=== PATIENT | female | born 1995 | race Two or more races ===

== ENCOUNTER 2018-11-28 21:22 | Inpatient (IN) | payer MEDICAID ==
[2018-11-28] MEDS: Naloxone 0.4 mg/ml Inj (Adult) IVP ONE ×4 (21:35→21:54)
[2018-11-28] MEDS ORDERED: Naloxone 0.4 mg/ml Inj (Adult) ONE ×3 (21:36→21:56)
[2018-11-28] MEDS ORDERED: Sodium Chloride 0.9% 1,000 ML IV ONE ×2 (21:40→22:40)
[2018-11-28 21:43] LABS: BASO % 0.4 % (0.0-2.0); EOS # 0.2 K/uL (0.0-0.7); EOS % 1.6 % (0.0-4.0); HEMOGLOBIN 13.8 g/dL (11.0-16.0); LYMPH % 26.7 % (20.0-40.0); MEAN CORPUSCULAR HEMOGLOBIN 28.4 pg (27.0-31.0); MEAN CORPUSCULAR HGB CONC 33.5 g/dL (33.0-37.0); MEAN PLATELET VOLUME 8.5 fL (7.2-11.7); MONO # 0.7 K/uL (0.0-0.8); MONO % 6.6 % (0.0-10.0); NEUT # 7.3 K/uL (1.8-7.0); NEUT % 64.7 % (50.0-75.0); NRBC % 0.1 % (0.0-2.0); RBC 4.85 Mil/uL (3.80-5.20); RED CELL DISTRIBUTION WIDTH 13.8 % (11.5-14.5); WHITE BLOOD COUNT 11.2 K/uL (4.8-10.8)
[2018-11-28 21:46] LABS: SQUAMOUS EPITHIAL 1 /hpf (0-5); URINE BILIRUBIN NEGATIVE (NEGATIVE); URINE BLOOD NEGATIVE (NEGATIVE); URINE CLARITY Clear (Clear); URINE COLOR Colorless (YELLOW); URINE GLUCOSE (UA) NORMAL (Normal); URINE LEUKOCYTE ESTERASE NEG Leu/uL (Negative); URINE PROTEIN NEGATIVE (NEGATIVE); URINE UROBILINOGEN NORMAL mg/dL (0.2-1.0)
[2018-11-28] MEDS ORDERED: Naloxone 0.4 mg/ml Inj (Adult) IVP ONE ×2 (21:49)
[2018-11-28 21:50] LABS: HCG,QUALITATIVE URINE NEGATIVE (NEGATIVE)
[2018-11-28 22:02] LABS: BENZODIAZEPINES, UR NEGATIVE (NEGATIVE); OPIATES, UR NEGATIVE (NEGATIVE); PHENCYCLIDINE, UR NEGATIVE (NEGATIVE)
[2018-11-28 22:03] LABS: BARBITURATES, UR POSITIVE (NEGATIVE)
[2018-11-28 22:09] LABS: ALB/GLOB RATIO 1.5 (1.0-2.1); ALBUMIN 4.6 g/dL (3.5-5.0); ALT/SGPT 10 U/L (9-52); AST/SGOT 35 U/L (14-36); BLOOD UREA NITROGEN 13 mg/dL (7-17); CALCIUM 9.6 mg/dl (8.6-10.4); GFR NON-AFRICAN AMERICAN > 60
[2018-11-28 22:10] LABS: ACETAMINOPHEN < 10.0 ug/mL (10.0-30.0); SALICYLATE < 1.0 mg/dL 1
--- NOTE | 2018-11-28 22:11 | C.PDOC ---
History Of Present Illness 23 year old female is brought to the ED by EMS accompanied by family after patient was found unresponsive prior to arrival. As per family, patient and family had a normal day today. Patient was not acting any different than her usual aside from complaining of back pain since this morning. Family states she ate lunch with her family and appeared fine. Earlier tonight, patient went into her room. When patient did not come out of her room for a while, parents went to check on her and found she was lying on her bed and they were unable to wake her. EMS was called shortly after. Patient arrived to the ED with vital signs within normal limits and O2 saturation of 97% on room air. Upon ED arrival, patient is responsive to painful stimuli. She was given Narcan, without response. Patient's mother states that she (mother) takes Baclofen, which was in the house but denies the bottle moved from its usual position or any evidence of pills. Additional information limited secondary to patient's clinical condition. Time Seen by Provider: 11/28/18 21:24 Chief Complaint (Nursing): Altered Mental Status History Per: EMS, Family History/Exam Limitations: Clinical Condition Onset Of Symptoms: Cannot Confirm Onset Current Symptoms Are (Timing): Still Present Usual Baseline: Alert Oriented Additional History Per: Family Past Medical History Reviewed: Historical Data, Nursing Documentation, Vital Signs Vital Signs: Last Vital Signs Temp 96.2 F L 11/28/18 21:33 Pulse 57 L 11/28/18 21:23 Resp 20 11/28/18 21:23 BP 96/53 L 11/28/18 21:23 Pulse Ox 99 11/28/18 21:23 - Medical History PMH: No Chronic Diseases Surgical History: No Surg Hx Family History: States: Unknown Family Hx - Social History Hx Alcohol Use: No Hx Substance Use: No - Immunization History Hx Tetanus Toxoid Vaccination: No Hx Influenza Vaccination: No Hx Pneumococcal Vaccination: No Review Of Systems Review Of Systems: ROS cannot be obtained secondary to pt's inabilty to answer questions. Physical Exam - Physical Exam Appears: Non-toxic, In Acute Distress Skin: Normal Color, Warm, Dry, No Other (signs of trauma ) Head: Atraumatic, Normacephalic Eye(s): bilateral: Other (pupils pinpoint ) Oral Mucosa: Moist Tongue: No Bite, No Laceration Throat: Drooling (slight) Neck: Supple Chest: Symmetrical, No Deformity, No Tenderness Cardiovascular: Rhythm Regular, No Murmur Respiratory: Normal Breath Sounds, No Rales, No Rhonchi, No Wheezing Gastrointestinal/Abdominal: Soft, No Tenderness, No Distention, No Guarding, No Rebound Extremity: Capillary Refill (less than 2 seconds), Other (wetness noted to groin area, indicating possible urinary incontinence ) Neurological/Psych: Other (responsive to painful stimuli ) ED Course And Treatment - Laboratory Results Result Diagrams: 11/28/18 21:35 11/28/18 21:35 Lab Results: Urine Color Colorless (YELLOW) 11/28/18 21:35 Urine Clarity Clear (Clear) 11/28/18 21:35 Urine pH 6.0 (5.0-8.0) 11/28/18 21:35 Ur Specific [place] 1.004 (1.003-1.030) 11/28/18 21:35 Urine Protein Negative mg/dL (NEGATIVE) 11/28/18 21:35 Urine Glucose (UA) Normal mg/dL (Normal) 11/28/18 21:35 Urine Ketones Negative mg/dL (NEGATIVE) 11/28/18 21:35 Urine Blood Negative (NEGATIVE) 11/28/18 21:35 Urine Nitrate Negative (NEGATIVE) 11/28/18 21:35 Urine Bilirubin Negative (NEGATIVE) 11/28/18 21:35 Urine Urobilinogen Normal mg/dL (0.2-1.0) 11/28/18 21:35 Ur Leukocyte Esterase Neg Janis/uL (Negative) 11/28/18 21:35 Urine WBC (Auto) < 1 /hpf (0-5) 11/28/18 21:35 Ur Squamous Epith Cells 1 /hpf (0-5) 11/28/18 21:35 Urine HCG, Qual Negative (NEGATIVE) 11/28/18 21:35 Urine HCG, Qual Negative (NEGATIVE) 11/28/18 21:35 O2 Sat by Pulse Oximetry: 99 Medical Decision Making Medical Decision Making: Progress: Bloodwork, urinalysis, CXR, EKG, CT Head ordered and reviewed. Narcan IVP and IV Fluids given. UDS positive for marijuana and barbiturates. Case discussed with Dr. Zarate (ICU wood barrel reconditioner), who has accepted the patient. Disposition Discussed With : Nayan A Elliot - Disposition Disposition: HOSPITALIZED Disposition Time: 22:40 Condition: GUARDED Forms: [facility] (Polish) - Clinical Impression Clinical Impression: Overdose of barbiturate - Scribe Statement The provider has reviewed the documentation as recorded by the Scribe (Siena Cheung) Provider Attestation: All medical record entries made by the Scribe were at my direction and personally dictated by me. I have reviewed the chart and agree that the record accurately reflects my personal performance of the history, physical exam, medical decision making, and the department course for this patient. I have also personally directed, reviewed, and agree with the discharge instructions and disposition. Decision To Admit - Pt Status Changed To: Hospital Disposition Of: Inpatient - Admit Certification Admit to Inpatient:: After my assessment, the patient will require hospitalization for at least two midnights. This is because of the severity of symptoms shown, intensity of services needed, and/or the medical risk in this patient being treated as an outpatient. - InPatient: Physician Admission Certification:: overdose - . Bed Request Type: ICU Admitting Physician: Rachid Carpenter Patient Diagnosis: Overdose of barbiturate
[2018-11-28 22:28] LABS: ARTERIAL BLOOD GAS HCO3 19.7 mmol/L (21-28); ARTERIAL BLOOD GAS HEMOGLOBIN 12.1 g/dL (11.7-17.4); ARTERIAL BLOOD GAS O2 SAT 99.6 % (95-98); ARTERIAL BLOOD GAS PCO2 35 mm/Hg (35-45); ARTERIAL BLOOD GAS PH 7.33 (7.35-7.45); ARTERIAL BLOOD GAS PO2 363 mm/Hg (80-100); ARTERIAL BLOOD GAS TCO2 19.6 mmol/L (22-28)
[2018-11-28 22:47] LABS: VENOUS BLOOD GAS BASE EXCESS -4.9 mmol/L (0.0-2.0); VENOUS BLOOD GAS PCO2 52 mmHg (40-60); VENOUS BLOOD GAS PO2 52 mm/Hg (30-55); VENOUS BLOOD PH 7.25 (7.32-7.43)
--- NOTE | 2018-11-28 23:02 | CP.PCM.CON ---
History of Present Illness - History of Present Illness History of Present Illness: CCM 23 yo female with hx migraines was c/o back pain today per om who was pt OK then 20 min later poorly responsive. Pt BIBEMS and received multiple doses on narcan b/o unresponisve and constricted pupils. No response to narcan. given 1 liter IV fluid in ED. Pt not giving hx. no sick contacts or recent travel. ([place] in March) ffamily denied hx fever /v /d /sob /cough /chest pain. No hx depression or suicide attempts. ROS- as noted All- NKDAsocial- no tob/ etoh/ drugs per family Meds- fioricet/ NSAID FH- unknown PE- T-96.2 P- 60 R-12 BP-122/60 Pupils sl. constricted, sluggish Neck- no jvdlungs- bialt bs Hert-rr aBd- benign Ext- no edema Neuro-moves all ext to pain, Opens eyes to sternal rub and moans Labs, EKG, [id number] U-tox-+noel, +THC CT brain- neg CXR-neg A&P Barbituate OD Encephalopathy Admit to ICU IV hydration neuro checks check lactate maintain optimal lytes repeat labs /ABG suction prn DVT prophylaxis Neurology eval & EEG if no improvement in MS Past Patient History - Past Social History Smoking Status: Unknown If Ever Smoked - PSYCHIATRIC Hx Substance Use: No - SURGICAL HISTORY Hx Surgeries: No Meds Allergies/Adverse Reactions: Allergies Allergy/AdvReac Type Severity Reaction Status Date / Time No Known Allergies Allergy Verified 11/28/18 21:27 - Medications Medications: Current Medications Sodium Chloride (Sodium Chloride 0.9%) 1,000 mls @ 1,000 mls/hr IV .Q1H ONE Stop: 11/28/18 23:39 Last Admin: 11/28/18 22:41 Dose: 1,000 mls/hr Results - Vital Signs Recent Vital Signs: Last Vital Signs Temp 96.2 F L 11/28/18 21:33 Pulse 52 L 11/28/18 22:20 Resp 12 11/28/18 22:20 BP 130/69 11/28/18 22:20 Pulse Ox 99 11/28/18 22:47 - Labs Result Diagrams: 11/28/18 21:35 11/28/18 21:35 Labs: Laboratory Results - last 24 hr 11/28/18 11/28/18 11/28/18 21:25 21:30 21:35 WBC 11.2 H RBC 4.85 Hgb 13.8 Hct 41.3 MCV 85.0 MCH 28.4 MCHC 33.5 RDW 13.8 Plt Count 280 MPV 8.5 Neut % (Auto) 64.7 Lymph % (Auto) 26.7 [place] % (Auto) 6.6 Eos % (Auto) 1.6 Baso % (Auto) 0.4 Neut # (Auto) 7.3 H Lymph # (Auto) 3.0 [place] # (Auto) 0.7 Eos # (Auto) 0.2 Baso # (Auto) 0.0 Puncture Site pCO2 pO2 HCO3 ABG pH ABG Total CO2 ABG O2 Saturation ABG Base Excess ABG Hemoglobin ABG Carboxyhemoglobin POC ABG HHb (Measured) ABG Methemoglobin Eddi Test VBG pH VBG pCO2 VBG HCO3 VBG Total CO2 VBG O2 Sat (Calc) VBG Base Excess VBG Potassium A-a O2 Difference Respiratory Index Hgb O2 Saturation Glucose Lactate FiO2 Sodium Potassium Chloride Carbon Dioxide Anion Gap BUN Creatinine Est GFR ( Amer) Est GFR (Non-Af Amer) POC Glucose (mg/dL) 102 Random Glucose Calcium Phosphorus Magnesium Total Bilirubin AST ALT Alkaline Phosphatase Total Protein Albumin Globulin Albumin/Globulin Ratio Venous Blood Potassium Urine Color Urine Clarity Urine pH Ur Specific [place] Urine Protein Urine Glucose (UA) Urine Ketones Urine Blood Urine Nitrate Urine Bilirubin Urine Urobilinogen Ur Leukocyte Esterase Urine WBC (Auto) Ur Squamous Epith Cells Urine HCG, Qual Salicylates Urine Opiates Screen Urine Methadone Screen Acetaminophen Ur Barbiturates Screen Ur Phencyclidine Scrn Ur Amphetamines Screen U Benzodiazepines Scrn U Oth Cocaine Metabols U Cannabinoids Screen Alcohol, Quantitative < 10 11/28/18 11/28/18 11/28/18 21:35 21:35 21:35 WBC RBC Hgb Hct MCV MCH MCHC RDW Plt Count MPV Neut % (Auto) Lymph % (Auto) [place] % (Auto) Eos % (Auto) Baso % (Auto) Neut # (Auto) Lymph # (Auto) [place] # (Auto) Eos # (Auto) Baso # (Auto) Puncture Site pCO2 pO2 HCO3 ABG pH ABG Total CO2 ABG O2 Saturation ABG Base Excess ABG Hemoglobin ABG Carboxyhemoglobin POC ABG HHb (Measured) ABG Methemoglobin Eddi Test VBG pH VBG pCO2 VBG HCO3 VBG Total CO2 VBG O2 Sat (Calc) VBG Base Excess VBG Potassium A-a O2 Difference Respiratory Index Hgb O2 Saturation Glucose Lactate FiO2 Sodium 140 Potassium 3.9 Chloride 108 H Carbon Dioxide 24 Anion Gap 12 BUN 13 Creatinine 0.5 L Est GFR ( Amer) > 60 Est GFR (Non-Af Amer) > 60 POC Glucose (mg/dL) Random Glucose 108 H Calcium 9.6 Phosphorus 3.4 Magnesium 2.3 Total Bilirubin 0.3 AST 35 ALT 10 Alkaline Phosphatase 65 Total Protein 7.6 Albumin 4.6 Globulin 3.1 Albumin/Globulin Ratio 1.5 Venous Blood Potassium Urine Color Colorless Urine Clarity Clear Urine pH 6.0 Ur Specific [place] 1.004 Urine Protein Negative Urine Glucose (UA) Normal Urine Ketones Negative Urine Blood Negative Urine Nitrate Negative Urine Bilirubin Negative Urine Urobilinogen Normal Ur Leukocyte Esterase Neg Urine WBC (Auto) < 1 Ur Squamous Epith Cells 1 Urine HCG, Qual Negative Salicylates Urine Opiates Screen Negative Urine Methadone Screen Negative Acetaminophen Ur Barbiturates Screen Positive H Ur Phencyclidine Scrn Negative Ur Amphetamines Screen Negative U Benzodiazepines Scrn Negative U Oth Cocaine Metabols Negative U Cannabinoids Screen Positive H Alcohol, Quantitative 11/28/18 11/28/18 11/28/18 21:46 22:20 22:40 WBC RBC Hgb Hct MCV MCH MCHC RDW Plt Count MPV Neut % (Auto) Lymph % (Auto) [place] % (Auto) Eos % (Auto) Baso % (Auto) Neut # (Auto) Lymph # (Auto) [place] # (Auto) Eos # (Auto) Baso # (Auto) Puncture Site Rb pCO2 35 pO2 363 H 52 HCO3 19.7 L ABG pH 7.33 L ABG Total CO2 19.6 L ABG O2 Saturation 99.6 H ABG Base Excess -6.7 L ABG Hemoglobin 12.1 ABG Carboxyhemoglobin 1.0 POC ABG HHb (Measured) 0.4 ABG Methemoglobin 0.7 Eddi Test Na VBG pH 7.25 L VBG pCO2 52 VBG HCO3 20.6 VBG Total CO2 24.4 VBG O2 Sat (Calc) 88.0 H VBG Base Excess -4.9 L VBG Potassium 4.0 A-a O2 Difference 306.0 Respiratory Index 0.8 Hgb O2 Saturation 97.9 Glucose 108 H Lactate 0.9 FiO2 100.0 Sodium 140.0 Potassium Chloride 108.0 H Carbon Dioxide Anion Gap BUN Creatinine Est GFR ( Amer) Est GFR (Non-Af Amer) POC Glucose (mg/dL) Random Glucose Calcium Phosphorus Magnesium Total Bilirubin AST ALT Alkaline Phosphatase Total Protein Albumin Globulin Albumin/Globulin Ratio Venous Blood Potassium 4.0 Urine Color Urine Clarity Urine pH Ur Specific [place] Urine Protein Urine Glucose (UA) Urine Ketones Urine Blood Urine Nitrate Urine Bilirubin Urine Urobilinogen Ur Leukocyte Esterase Urine WBC (Auto) Ur Squamous Epith Cells Urine HCG, Qual Salicylates < 1.0 Urine Opiates Screen Urine Methadone Screen Acetaminophen < 10.0 L Ur Barbiturates Screen Ur Phencyclidine Scrn Ur Amphetamines Screen U Benzodiazepines Scrn U Oth Cocaine Metabols U Cannabinoids Screen Alcohol, Quantitative Assessment & Plan (1) Overdose of barbiturate Status: Acute (2) Encephalopathy Status: Acute
[2018-11-29] MEDS: Dextrose 5%/0.9% NS 1,000 ML IV SCH ×4 (00:31→20:24)
[2018-11-29 01:43] LABS: ABG ALLEN TEST POS; ARTERIAL BLOOD GAS HCO3 20.9 mmol/L (21-28); ARTERIAL BLOOD GAS O2 SAT 100.2 % (95-98); ARTERIAL BLOOD GAS PCO2 49 mm/Hg (35-45); ARTERIAL BLOOD GAS PH 7.26 (7.35-7.45); ARTERIAL BLOOD GAS PO2 603 mm/Hg (80-100); ARTERIAL BLOOD GAS TCO2 23.5 mmol/L (22-28)
--- NOTE | 2018-11-29 03:16 | CP.PCM.HP ---
<Carli Bales - Last Filed: 11/29/18 05:16> History of Present Illness - History of Present Illness History of Present Illness: cc: "AMS" Ms. Henley is a 23yo female with PMH of migraines who was BIBA for acute change in mental status. Patient was talking with family, stating she had back pain and wanting to rest. Last known normal was 8:15pm. By 8:30pm patient was unarousable by family and 911 called. Multiple doses of Narcan were given en route to hospital because of unresponsiveness and constricted pupils with no effect. Family denies recent travel or recent illness. Patient unable to provide history. No empty bottles or pills noted around patient by family or EMS. PMH: migraines Med: Fioricet 325/50/40 TID prn for headache All: NKDA PSxHx: denies FamHx: denies SocHx: denies tobacco, alcohol, drugs. Full Code Present on Admission - Present on Admission Any Indicators Present on Admission: No Review of Systems - Review of Systems Systems not reviewed;Unavailable: Altered Mental Status Past Patient History - Past Medical History & Family History Past Medical History?: Yes - Past Social History Smoking Status: Never Smoked Alcohol: None Drugs: Denies Home Situation {Lives}: With Family - CARDIAC Hx Cardiac Disorders: No - PULMONARY Hx Respiratory Disorders: No - NEUROLOGICAL Hx Neurological Disorder: Yes Hx Migraine: Yes - HEENT Hx HEENT Problems: No - RENAL Hx Chronic Kidney Disease: No - ENDOCRINE/METABOLIC Hx Endocrine Disorders: No - HEMATOLOGICAL/ONCOLOGICAL Hx Blood Disorders: No - INTEGUMENTARY Hx Dermatological Problems: No - MUSCULOSKELETAL/RHEUMATOLOGICAL Hx Falls: No - GASTROINTESTINAL Hx Gastrointestinal Disorders: No - GENITOURINARY/GYNECOLOGICAL Hx Genitourinary Disorders: No - PSYCHIATRIC Hx Substance Use: No - SURGICAL HISTORY Hx Surgeries: No - ANESTHESIA Hx Anesthesia: No Meds Allergies/Adverse Reactions: Allergies Allergy/AdvReac Type Severity Reaction Status Date / Time No Known Allergies Allergy Verified 11/28/18 21:27 Physical Exam - Constitutional Appears: Toxic, No Acute Distress - Head Exam Head Exam: ATRAUMATIC, NORMOCEPHALIC - Eye Exam Eye Exam: Normal appearance Pupil Exam: Miosis Additional comments: sluggish - ENT Exam ENT Exam: Mucous Membranes Dry - Neck Exam Neck exam: Positive for: Normal Inspection - Respiratory Exam Respiratory Exam: Clear to Auscultation Bilateral. absent: Rales, Rhonchi, Wheezes Additional comments: wiley respirations supplemental O2 via NRB nasal trumpet removed 2/2 gurgling - Cardiovascular Exam Cardiovascular Exam: +S1, +S2. absent: JVD, Systolic Murmur - GI/Abdominal Exam GI & Abdominal Exam: Normal Bowel Sounds, Soft. absent: Tenderness - Extremities Exam Extremities exam: Positive for: normal capillary refill, pedal pulses present - Neurological Exam Additional comments: moves all 4 extremities responsive to pain gag reflex intact on suctioning - Skin Skin Exam: Dry, Intact, Pallor Results - Vital Signs Recent Vital Signs: Last Vital Signs Temp 96.2 F L 11/28/18 21:33 Pulse 54 L 11/28/18 23:17 Resp 10 L 11/28/18 23:17 BP 122/60 11/28/18 23:17 Pulse Ox 99 11/28/18 23:25 - Labs Result Diagrams: 11/28/18 21:35 11/28/18 21:35 Labs: Laboratory Results - last 24 hr 11/28/18 11/28/18 11/28/18 21:25 21:30 21:35 WBC 11.2 H RBC 4.85 Hgb 13.8 Hct 41.3 MCV 85.0 MCH 28.4 MCHC 33.5 RDW 13.8 Plt Count 280 MPV 8.5 Neut % (Auto) 64.7 Lymph % (Auto) 26.7 [place] % (Auto) 6.6 Eos % (Auto) 1.6 Baso % (Auto) 0.4 Neut # (Auto) 7.3 H Lymph # (Auto) 3.0 [place] # (Auto) 0.7 Eos # (Auto) 0.2 Baso # (Auto) 0.0 Puncture Site pCO2 pO2 HCO3 ABG pH ABG Total CO2 ABG O2 Saturation ABG Base Excess ABG Hemoglobin ABG Carboxyhemoglobin POC ABG HHb (Measured) ABG Methemoglobin Eddi Test ABG Potassium VBG pH VBG pCO2 VBG HCO3 VBG Total CO2 VBG O2 Sat (Calc) VBG Base Excess VBG Potassium A-a O2 Difference Respiratory Index Hgb O2 Saturation Glucose Lactate Liter Flow FiO2 Sodium Potassium Chloride Carbon Dioxide Anion Gap BUN Creatinine Est GFR ( Amer) Est GFR (Non-Af Amer) POC Glucose (mg/dL) 102 Random Glucose Calcium Phosphorus Magnesium Total Bilirubin AST ALT Alkaline Phosphatase Total Protein Albumin Globulin Albumin/Globulin Ratio Arterial Blood Potassium Venous Blood Potassium Urine Color Urine Clarity Urine pH Ur Specific [place] Urine Protein Urine Glucose (UA) Urine Ketones Urine Blood Urine Nitrate Urine Bilirubin Urine Urobilinogen Ur Leukocyte Esterase Urine WBC (Auto) Ur Squamous Epith Cells Urine HCG, Qual Salicylates Urine Opiates Screen Urine Methadone Screen Acetaminophen Ur Barbiturates Screen Ur Phencyclidine Scrn Ur Amphetamines Screen U Benzodiazepines Scrn U Oth Cocaine Metabols U Cannabinoids Screen Alcohol, Quantitative < 10 11/28/18 11/28/18 11/28/18 21:35 21:35 21:35 WBC RBC Hgb Hct MCV MCH MCHC RDW Plt Count MPV Neut % (Auto) Lymph % (Auto) [place] % (Auto) Eos % (Auto) Baso % (Auto) Neut # (Auto) Lymph # (Auto) [place] # (Auto) Eos # (Auto) Baso # (Auto) Puncture Site pCO2 pO2 HCO3 ABG pH ABG Total CO2 ABG O2 Saturation ABG Base Excess ABG Hemoglobin ABG Carboxyhemoglobin POC ABG HHb (Measured) ABG Methemoglobin Eddi Test ABG Potassium VBG pH VBG pCO2 VBG HCO3 VBG Total CO2 VBG O2 Sat (Calc) VBG Base Excess VBG Potassium A-a O2 Difference Respiratory Index Hgb O2 Saturation Glucose Lactate Liter Flow FiO2 Sodium 140 Potassium 3.9 Chloride 108 H Carbon Dioxide 24 Anion Gap 12 BUN 13 Creatinine 0.5 L Est GFR ( Amer) > 60 Est GFR (Non-Af Amer) > 60 POC Glucose (mg/dL) Random Glucose 108 H Calcium 9.6 Phosphorus 3.4 Magnesium 2.3 Total Bilirubin 0.3 AST 35 ALT 10 Alkaline Phosphatase 65 Total Protein 7.6 Albumin 4.6 Globulin 3.1 Albumin/Globulin Ratio 1.5 Arterial Blood Potassium Venous Blood Potassium Urine Color Colorless Urine Clarity Clear Urine pH 6.0 Ur Specific [place] 1.004 Urine Protein Negative Urine Glucose (UA) Normal Urine Ketones Negative Urine Blood Negative Urine Nitrate Negative Urine Bilirubin Negative Urine Urobilinogen Normal Ur Leukocyte Esterase Neg Urine WBC (Auto) < 1 Ur Squamous Epith Cells 1 Urine HCG, Qual Negative Salicylates Urine Opiates Screen Negative Urine Methadone Screen Negative Acetaminophen Ur Barbiturates Screen Positive H Ur Phencyclidine Scrn Negative Ur Amphetamines Screen Negative U Benzodiazepines Scrn Negative U Oth Cocaine Metabols Negative U Cannabinoids Screen Positive H Alcohol, Quantitative 11/28/18 11/28/18 11/28/18 21:46 22:20 22:40 WBC RBC Hgb Hct MCV MCH MCHC RDW Plt Count MPV Neut % (Auto) Lymph % (Auto) [place] % (Auto) Eos % (Auto) Baso % (Auto) Neut # (Auto) Lymph # (Auto) [place] # (Auto) Eos # (Auto) Baso # (Auto) Puncture Site Rb pCO2 35 pO2 363 H 52 HCO3 19.7 L ABG pH 7.33 L ABG Total CO2 19.6 L ABG O2 Saturation 99.6 H ABG Base Excess -6.7 L ABG Hemoglobin 12.1 ABG Carboxyhemoglobin 1.0 POC ABG HHb (Measured) 0.4 ABG Methemoglobin 0.7 Eddi Test Na ABG Potassium VBG pH 7.25 L VBG pCO2 52 VBG HCO3 20.6 VBG Total CO2 24.4 VBG O2 Sat (Calc) 88.0 H VBG Base Excess -4.9 L VBG Potassium 4.0 A-a O2 Difference 306.0 Respiratory Index 0.8 Hgb O2 Saturation 97.9 Glucose 108 H Lactate 0.9 Liter Flow FiO2 100.0 Sodium 140.0 Potassium Chloride 108.0 H Carbon Dioxide Anion Gap BUN Creatinine Est GFR ( Amer) Est GFR (Non-Af Amer) POC Glucose (mg/dL) Random Glucose Calcium Phosphorus Magnesium Total Bilirubin AST ALT Alkaline Phosphatase Total Protein Albumin Globulin Albumin/Globulin Ratio Arterial Blood Potassium Venous Blood Potassium 4.0 Urine Color Urine Clarity Urine pH Ur Specific [place] Urine Protein Urine Glucose (UA) Urine Ketones Urine Blood Urine Nitrate Urine Bilirubin Urine Urobilinogen Ur Leukocyte Esterase Urine WBC (Auto) Ur Squamous Epith Cells Urine HCG, Qual Salicylates < 1.0 Urine Opiates Screen Urine Methadone Screen Acetaminophen < 10.0 L Ur Barbiturates Screen Ur Phencyclidine Scrn Ur Amphetamines Screen U Benzodiazepines Scrn U Oth Cocaine Metabols U Cannabinoids Screen Alcohol, Quantitative 11/29/18 11/29/18 01:35 01:49 WBC RBC Hgb Hct MCV MCH MCHC RDW Plt Count MPV Neut % (Auto) Lymph % (Auto) [place] % (Auto) Eos % (Auto) Baso % (Auto) Neut # (Auto) Lymph # (Auto) [place] # (Auto) Eos # (Auto) Baso # (Auto) Puncture Site Rradial pCO2 49 H pO2 603 H HCO3 20.9 L ABG pH 7.26 L ABG Total CO2 23.5 ABG O2 Saturation 100.2 H ABG Base Excess -5.3 L ABG Hemoglobin ABG Carboxyhemoglobin POC ABG HHb (Measured) ABG Methemoglobin Eddi Test Pos ABG Potassium 3.9 VBG pH VBG pCO2 VBG HCO3 VBG Total CO2 VBG O2 Sat (Calc) VBG Base Excess VBG Potassium A-a O2 Difference 49.0 Respiratory Index 0.1 Hgb O2 Saturation Glucose 169 H Lactate 0.7 Liter Flow 12.0 FiO2 100.0 Sodium 140.0 Potassium Chloride 113.0 H Carbon Dioxide Anion Gap BUN Creatinine Est GFR ( Amer) Est GFR (Non-Af Amer) POC Glucose (mg/dL) Random Glucose Calcium Phosphorus Magnesium Total Bilirubin AST ALT Alkaline Phosphatase Total Protein Albumin Globulin Albumin/Globulin Ratio Arterial Blood Potassium 3.9 Venous Blood Potassium Urine Color Urine Clarity Urine pH Ur Specific [place] Urine Protein Urine Glucose (UA) Urine Ketones Urine Blood Urine Nitrate Urine Bilirubin Urine Urobilinogen Ur Leukocyte Esterase Urine WBC (Auto) Ur Squamous Epith Cells Urine HCG, Qual Salicylates Urine Opiates Screen Urine Methadone Screen Acetaminophen < 10.0 L Ur Barbiturates Screen Ur Phencyclidine Scrn Ur Amphetamines Screen U Benzodiazepines Scrn U Oth Cocaine Metabols U Cannabinoids Screen Alcohol, Quantitative Assessment & Plan - Assessment and Plan (Free Text) Assessment: 23yo F PMH migraine admitted to ICU for barbituate OD and encephalopathy. Plan: Barbituate Overdose UDS positive for barbituates and cannabinoids BAL <10 Total 2.4mg Narcan given in ED. 2L NS, Aofran x1 given. EKG sinus wiley CXR (11/28): pending read. prelim negative CT Head without contrast (11/28): pending read. prelim negative ABG, repeat ABG - f/u tox levels - bedside EEG PPx - DVT: Heparin 5000u SC q8, SCDs - IVF: D5NS@150 - f/u MRSA screen d/w Dr. Pauline Bales PGY-1 - Date & Time Date: 11/29/18 Time: 00:45 <Rachid Carpenter P - Last Filed: 11/29/18 07:15> Results - Vital Signs Recent Vital Signs: Last Vital Signs Temp 96.5 F L 11/29/18 04:00 Pulse 61 11/29/18 06:30 Resp 11 L 11/29/18 06:30 BP 118/60 11/29/18 06:30 Pulse Ox 100 11/29/18 04:00 - Labs Result Diagrams: 11/29/18 06:15 11/29/18 06:14 Labs: Laboratory Results - last 24 hr 11/28/18 11/28/18 11/28/18 21:25 21:30 21:35 WBC 11.2 H RBC 4.85 Hgb 13.8 Hct 41.3 MCV 85.0 MCH 28.4 MCHC 33.5 RDW 13.8 Plt Count 280 MPV 8.5 Neut % (Auto) 64.7 Lymph % (Auto) 26.7 [place] % (Auto) 6.6 Eos % (Auto) 1.6 Baso % (Auto) 0.4 Neut # (Auto) 7.3 H Lymph # (Auto) 3.0 [place] # (Auto) 0.7 Eos # (Auto) 0.2 Baso # (Auto) 0.0 Puncture Site pCO2 pO2 HCO3 ABG pH ABG Total CO2 ABG O2 Saturation ABG Base Excess ABG Hemoglobin ABG Carboxyhemoglobin POC ABG HHb (Measured) ABG Methemoglobin Eddi Test ABG Potassium VBG pH VBG pCO2 VBG HCO3 VBG Total CO2 VBG O2 Sat (Calc) VBG Base Excess VBG Potassium A-a O2 Difference Respiratory Index Hgb O2 Saturation Glucose Lactate Liter Flow FiO2 Sodium Potassium Chloride Carbon Dioxide Anion Gap BUN Creatinine Est GFR ( Amer) Est GFR (Non-Af Amer) POC Glucose (mg/dL) 102 Random Glucose Calcium Phosphorus Magnesium Total Bilirubin AST ALT Alkaline Phosphatase Ammonia Total Protein Albumin Globulin Albumin/Globulin Ratio Arterial Blood Potassium Venous Blood Potassium Urine Color Urine Clarity Urine pH Ur Specific [place] Urine Protein Urine Glucose (UA) Urine Ketones Urine Blood Urine Nitrate Urine Bilirubin Urine Urobilinogen Ur Leukocyte Esterase Urine WBC (Auto) Ur Squamous Epith Cells Urine HCG, Qual Salicylates Urine Opiates Screen Urine Methadone Screen Acetaminophen Ur Barbiturates Screen Valproic Acid Ur Phencyclidine Scrn Ur Amphetamines Screen U Benzodiazepines Scrn U Oth Cocaine Metabols U Cannabinoids Screen Alcohol, Quantitative < 10 11/28/18 11/28/18 11/28/18 21:35 21:35 21:35 WBC RBC Hgb Hct MCV MCH MCHC RDW Plt Count MPV Neut % (Auto) Lymph % (Auto) [place] % (Auto) Eos % (Auto) Baso % (Auto) Neut # (Auto) Lymph # (Auto) [place] # (Auto) Eos # (Auto) Baso # (Auto) Puncture Site pCO2 pO2 HCO3 ABG pH ABG Total CO2 ABG O2 Saturation ABG Base Excess ABG Hemoglobin ABG Carboxyhemoglobin POC ABG HHb (Measured) ABG Methemoglobin Eddi Test ABG Potassium VBG pH VBG pCO2 VBG HCO3 VBG Total CO2 VBG O2 Sat (Calc) VBG Base Excess VBG Potassium A-a O2 Difference Respiratory Index Hgb O2 Saturation Glucose Lactate Liter Flow FiO2 Sodium 140 Potassium 3.9 Chloride 108 H Carbon Dioxide 24 Anion Gap 12 BUN 13 Creatinine 0.5 L Est GFR ( Amer) > 60 Est GFR (Non-Af Amer) > 60 POC Glucose (mg/dL) Random Glucose 108 H Calcium 9.6 Phosphorus 3.4 Magnesium 2.3 Total Bilirubin 0.3 AST 35 ALT 10 Alkaline Phosphatase 65 Ammonia Total Protein 7.6 Albumin 4.6 Globulin 3.1 Albumin/Globulin Ratio 1.5 Arterial Blood Potassium Venous Blood Potassium Urine Color Colorless Urine Clarity Clear Urine pH 6.0 Ur Specific [place] 1.004 Urine Protein Negative Urine Glucose (UA) Normal Urine Ketones Negative Urine Blood Negative Urine Nitrate Negative Urine Bilirubin Negative Urine Urobilinogen Normal Ur Leukocyte Esterase Neg Urine WBC (Auto) < 1 Ur Squamous Epith Cells 1 Urine HCG, Qual Negative Salicylates Urine Opiates Screen Negative Urine Methadone Screen Negative Acetaminophen Ur Barbiturates Screen Positive H Valproic Acid Ur Phencyclidine Scrn Negative Ur Amphetamines Screen Negative U Benzodiazepines Scrn Negative U Oth Cocaine Metabols Negative U Cannabinoids Screen Positive H Alcohol, Quantitative 11/28/18 11/28/18 11/28/18 21:46 22:20 22:40 WBC RBC Hgb Hct MCV MCH MCHC RDW Plt Count MPV Neut % (Auto) Lymph % (Auto) [place] % (Auto) Eos % (Auto) Baso % (Auto) Neut # (Auto) Lymph # (Auto) [place] # (Auto) Eos # (Auto) Baso # (Auto) Puncture Site Rb pCO2 35 pO2 363 H 52 HCO3 19.7 L ABG pH 7.33 L ABG Total CO2 19.6 L ABG O2 Saturation 99.6 H ABG Base Excess -6.7 L ABG Hemoglobin 12.1 ABG Carboxyhemoglobin 1.0 POC ABG HHb (Measured) 0.4 ABG Methemoglobin 0.7 Eddi Test Na ABG Potassium VBG pH 7.25 L VBG pCO2 52 VBG HCO3 20.6 VBG Total CO2 24.4 VBG O2 Sat (Calc) 88.0 H VBG Base Excess -4.9 L VBG Potassium 4.0 A-a O2 Difference 306.0 Respiratory Index 0.8 Hgb O2 Saturation 97.9 Glucose 108 H Lactate 0.9 Liter Flow FiO2 100.0 Sodium 140.0 Potassium Chloride 108.0 H Carbon Dioxide Anion Gap BUN Creatinine Est GFR ( Amer) Est GFR (Non-Af Amer) POC Glucose (mg/dL) Random Glucose Calcium Phosphorus Magnesium Total Bilirubin AST ALT Alkaline Phosphatase Ammonia Total Protein Albumin Globulin Albumin/Globulin Ratio Arterial Blood Potassium Venous Blood Potassium 4.0 Urine Color Urine Clarity Urine pH Ur Specific [place] Urine Protein Urine Glucose (UA) Urine Ketones Urine Blood Urine Nitrate Urine Bilirubin Urine Urobilinogen Ur Leukocyte Esterase Urine WBC (Auto) Ur Squamous Epith Cells Urine HCG, Qual Salicylates < 1.0 Urine Opiates Screen Urine Methadone Screen Acetaminophen < 10.0 L Ur Barbiturates Screen Valproic Acid Ur Phencyclidine Scrn Ur Amphetamines Screen U Benzodiazepines Scrn U Oth Cocaine Metabols U Cannabinoids Screen Alcohol, Quantitative 11/29/18 11/29/18 11/29/18 01:35 01:49 06:14 WBC RBC Hgb Hct MCV MCH MCHC RDW Plt Count MPV Neut % (Auto) Lymph % (Auto) [place] % (Auto) Eos % (Auto) Baso % (Auto) Neut # (Auto) Lymph # (Auto) [place] # (Auto) Eos # (Auto) Baso # (Auto) Puncture Site Rradial pCO2 49 H pO2 603 H HCO3 20.9 L ABG pH 7.26 L ABG Total CO2 23.5 ABG O2 Saturation 100.2 H ABG Base Excess -5.3 L ABG Hemoglobin ABG Carboxyhemoglobin POC ABG HHb (Measured) ABG Methemoglobin Eddi Test Pos ABG Potassium 3.9 VBG pH VBG pCO2 VBG HCO3 VBG Total CO2 VBG O2 Sat (Calc) VBG Base Excess VBG Potassium A-a O2 Difference 49.0 Respiratory Index 0.1 Hgb O2 Saturation Glucose 169 H Lactate 0.7 Liter Flow 12.0 FiO2 100.0 Sodium 140.0 142 Potassium 4.5 Chloride 113.0 H 114 H Carbon Dioxide 21 L Anion Gap 11 BUN 8 Creatinine 0.4 L Est GFR ( Amer) > 60 Est GFR (Non-Af Amer) > 60 POC Glucose (mg/dL) Random Glucose 155 H D Calcium 8.2 L Phosphorus Magnesium Total Bilirubin 0.4 AST 24 ALT 16 Alkaline Phosphatase 56 Ammonia Total Protein 6.7 Albumin 3.8 Globulin 2.9 Albumin/Globulin Ratio 1.3 Arterial Blood Potassium 3.9 Venous Blood Potassium Urine Color Urine Clarity Urine pH Ur Specific [place] Urine Protein Urine Glucose (UA) Urine Ketones Urine Blood Urine Nitrate Urine Bilirubin Urine Urobilinogen Ur Leukocyte Esterase Urine WBC (Auto) Ur Squamous Epith Cells Urine HCG, Qual Salicylates Urine Opiates Screen Urine Methadone Screen Acetaminophen < 10.0 L Ur Barbiturates Screen Valproic Acid Ur Phencyclidine Scrn Ur Amphetamines Screen U Benzodiazepines Scrn U Oth Cocaine Metabols U Cannabinoids Screen Alcohol, Quantitative 11/29/18 11/29/18 11/29/18 06:14 06:14 06:15 WBC 12.0 H RBC 4.69 Hgb 13.9 Hct 41.4 MCV 88.1 D MCH 29.7 MCHC 33.7 RDW 14.1 Plt Count 262 MPV 9.5 Neut % (Auto) 88.1 H Lymph % (Auto) 7.4 L [place] % (Auto) 4.3 Eos % (Auto) 0.1 Baso % (Auto) 0.1 Neut # (Auto) 10.6 H Lymph # (Auto) 0.9 L [place] # (Auto) 0.5 Eos # (Auto) 0.0 Baso # (Auto) 0.0 Puncture Site pCO2 pO2 HCO3 ABG pH ABG Total CO2 ABG O2 Saturation ABG Base Excess ABG Hemoglobin ABG Carboxyhemoglobin POC ABG HHb (Measured) ABG Methemoglobin Eddi Test ABG Potassium VBG pH VBG pCO2 VBG HCO3 VBG Total CO2 VBG O2 Sat (Calc) VBG Base Excess VBG Potassium A-a O2 Difference Respiratory Index Hgb O2 Saturation Glucose Lactate Liter Flow FiO2 Sodium Potassium Chloride Carbon Dioxide Anion Gap BUN Creatinine Est GFR ( Amer) Est GFR (Non-Af Amer) POC Glucose (mg/dL) Random Glucose Calcium Phosphorus Magnesium Total Bilirubin AST ALT Alkaline Phosphatase Ammonia 34 H Total Protein Albumin Globulin Albumin/Globulin Ratio Arterial Blood Potassium Venous Blood Potassium Urine Color Urine Clarity Urine pH Ur Specific [place] Urine Protein Urine Glucose (UA) Urine Ketones Urine Blood Urine Nitrate Urine Bilirubin Urine Urobilinogen Ur Leukocyte Esterase Urine WBC (Auto) Ur Squamous Epith Cells Urine HCG, Qual Salicylates Urine Opiates Screen Urine Methadone Screen Acetaminophen Ur Barbiturates Screen Valproic Acid < 10.0 L Ur Phencyclidine Scrn Ur Amphetamines Screen U Benzodiazepines Scrn U Oth Cocaine Metabols U Cannabinoids Screen Alcohol, Quantitative 11/29/18 06:40 WBC RBC Hgb Hct MCV MCH MCHC RDW Plt Count MPV Neut % (Auto) Lymph % (Auto) [place] % (Auto) Eos % (Auto) Baso % (Auto) Neut # (Auto) Lymph # (Auto) [place] # (Auto) Eos # (Auto) Baso # (Auto) Puncture Site Rradial pCO2 43 pO2 157 H HCO3 20.5 L ABG pH 7.29 L ABG Total CO2 22.0 ABG O2 Saturation 99.2 H ABG Base Excess -5.7 L ABG Hemoglobin 12.8 ABG Carboxyhemoglobin 0.8 POC ABG HHb (Measured) 0.8 ABG Methemoglobin 0.4 Eddi Test Pos ABG Potassium VBG pH VBG pCO2 VBG HCO3 VBG Total CO2 VBG O2 Sat (Calc) VBG Base Excess VBG Potassium A-a O2 Difference -11.0 Respiratory Index -0.1 Hgb O2 Saturation 97.9 Glucose Lactate Liter Flow 2.0 FiO2 28.0 Sodium Potassium Chloride Carbon Dioxide Anion Gap BUN Creatinine Est GFR ( Amer) Est GFR (Non-Af Amer) POC Glucose (mg/dL) Random Glucose Calcium Phosphorus Magnesium Total Bilirubin AST ALT Alkaline Phosphatase Ammonia Total Protein Albumin Globulin Albumin/Globulin Ratio Arterial Blood Potassium Venous Blood Potassium Urine Color Urine Clarity Urine pH Ur Specific [place] Urine Protein Urine Glucose (UA) Urine Ketones Urine Blood Urine Nitrate Urine Bilirubin Urine Urobilinogen Ur Leukocyte Esterase Urine WBC (Auto) Ur Squamous Epith Cells Urine HCG, Qual Salicylates Urine Opiates Screen Urine Methadone Screen Acetaminophen Ur Barbiturates Screen Valproic Acid Ur Phencyclidine Scrn Ur Amphetamines Screen U Benzodiazepines Scrn U Oth Cocaine Metabols U Cannabinoids Screen Alcohol, Quantitative Attending/Attestation - Attestation I have personally seen and examined this patient.: Yes I have fully participated in the care of the patient.: Yes I have reviewed all pertinent clinical information: Yes Notes (Text): 11/29/18 07:13 Suspected intentional overdose of unclear medication Lethargy Risk of aspiration Plan Admitted to ICU Supportive care 1:1 observation Aspiration seizure precaution. See orders for detail.
[2018-11-29 06:25] LABS: BASO % 0.1 % (0.0-2.0); EOS % 0.1 % (0.0-4.0); HEMOGLOBIN 13.9 g/dL (11.0-16.0); LYMPH # 0.9 K/uL (1.0-4.3); LYMPH % 7.4 % (20.0-40.0); MEAN CELL VOLUME 88.1 fL (81.0-99.0); MEAN CORPUSCULAR HEMOGLOBIN 29.7 pg (27.0-31.0); MEAN CORPUSCULAR HGB CONC 33.7 g/dL (33.0-37.0); MEAN PLATELET VOLUME 9.5 fL (7.2-11.7); MONO # 0.5 K/uL (0.0-0.8); MONO % 4.3 % (0.0-10.0); NEUT # 10.6 K/uL (1.8-7.0); NEUT % 88.1 % (50.0-75.0); PLATELET COUNT 262 K/uL (130-400); RBC 4.69 Mil/uL (3.80-5.20); RED CELL DISTRIBUTION WIDTH 14.1 % (11.5-14.5)
[2018-11-29 06:37] LABS: ALB/GLOB RATIO 1.3 (1.0-2.1); ALBUMIN 3.8 g/dL (3.5-5.0); ALT/SGPT 16 U/L (9-52); AST/SGOT 24 U/L (14-36); BLOOD UREA NITROGEN 8 mg/dL (7-17); CALCIUM 8.2 mg/dl (8.6-10.4); GFR NON-AFRICAN AMERICAN > 60
[2018-11-29 06:47] LABS: ABG ALLEN TEST POS; ARTERIAL BLOOD GAS HCO3 20.5 mmol/L (21-28); ARTERIAL BLOOD GAS HEMOGLOBIN 12.8 g/dL (11.7-17.4); ARTERIAL BLOOD GAS O2 SAT 99.2 % (95-98); ARTERIAL BLOOD GAS PCO2 43 mm/Hg (35-45); ARTERIAL BLOOD GAS PH 7.29 (7.35-7.45); ARTERIAL BLOOD GAS PO2 157 mm/Hg (80-100)
[2018-11-29 08:27] LABS: LYMPHOCYTE 9 % (20-40); MONOCYTE 5 % (0-10); PLATELET ESTIMATE NORMAL (NORMAL); TOTAL CELLS COUNTED 100
[2018-11-29 08:28] LABS: NEUTROPHIL 86 % (50-75)
--- NOTE | 2018-11-29 08:36 | CT ---
Date of service: 11/28/2018 PROCEDURE: CT HEAD WITHOUT CONTRAST. HISTORY: possible seizure COMPARISON: None available. TECHNIQUE: Axial computed tomography images were obtained through the head/brain without intravenous contrast. Radiation dose: Total exam DLP = 886.97 mGy-cm. This CT exam was performed using one or more of the following dose reduction techniques: Automated exposure control, adjustment of the mA and/or kV according to patient size, and/or use of iterative reconstruction technique. FINDINGS: HEMORRHAGE: No intracranial hemorrhage. BRAIN: No mass effect or edema. No atrophy or chronic microvascular ischemic changes. VENTRICLES: Unremarkable. No hydrocephalus. CALVARIUM: Unremarkable. PARANASAL SINUSES: Unremarkable as visualized. No significant inflammatory changes. MASTOID AIR CELLS: Unremarkable as visualized. No inflammatory changes. OTHER FINDINGS: None. IMPRESSION: No acute intracranial abnormality. If symptoms persists, consider correlation with MRI. A preliminary report was generated at 10:18 p.m. on 11/28/[address] Modesto Portillo from [email or web address].
--- NOTE | 2018-11-29 09:09 | RAD ---
Date of service: 11/28/2018 HISTORY: possible Seizure COMPARISON: None available. TECHNIQUE: 1 view obtained. FINDINGS: LUNGS: No active pulmonary disease. PLEURA: No significant pleural effusion identified, no pneumothorax apparent. CARDIOVASCULAR: No aortic atherosclerotic calcification present. Normal cardiac size. No pulmonary vascular congestion. OSSEOUS STRUCTURES: No significant abnormalities. VISUALIZED UPPER ABDOMEN: Normal. OTHER FINDINGS: None. IMPRESSION: No acute cardiopulmonary disease appreciated.
[2018-11-29 10:52] LABS: ABG ALLEN TEST PO; ARTERIAL BLOOD GAS HCO3 22.8 mmol/L (21-28); ARTERIAL BLOOD GAS O2 SAT 99.3 % (95-98); ARTERIAL BLOOD GAS PCO2 28 mm/Hg (35-45); ARTERIAL BLOOD GAS PH 7.46 (7.35-7.45); ARTERIAL BLOOD GAS PO2 154 mm/Hg (80-100); ARTERIAL BLOOD GAS TCO2 20.8 mmol/L (22-28)
--- NOTE | 2018-11-29 12:34 | CP.PCM.PN ---
Subjective - Date & Time of Evaluation Date of Evaluation: 11/29/18 Time of Evaluation: 12:20 - Subjective Subjective: Medical attending note Patient seen, examined and accompanied by both her mother as well as 2 aunts and niece at bedside. Patient is awake but lethargic at bedside will respond to yes or no sometimes. Unable to review systems secondary to clinical Per discussion with mother patient was noted normal yesterday while folding laundry with her. Then mother had called out to her however patient did not respond noted lethargy which prompted her to bring to the hospital. Per mother notes a history of headaches since childhood noted and has not had a formal neurology evaluation given childhood headaches. She reports that she just s tarted seeing her new PMD as of maybe 1 month ago she is without insurance insurance will kick in as of March 24. She reports that patient has been taking occasionally Fioricet for her headaches. She reports yesterday patient has reported a headache and abdominal pain and back pain. She denies any observed falls. I asked mom at bedside if there is any medication that is outside as well as she noted for Flexeril that mom is taking for back pain/muscle spasm. Also to note per mother patient does have a suspected seizure history as of 2 years ago where Patient had elevated blood pressure systolic in the 200s and was noted to be frothing the mouth observed by patient's sister which prompted her for hospitalization but cannot describe in terms of focal or grand mall or any type of seizure description. I cannot assess if patient is depressed or any ill intent at this time. Patient is surrounded by very concerned family members at bedside Objective - Vital Signs/Intake and Output Vital Signs (last 24 hours): Temp Pulse Resp BP Pulse Ox 97.6 F 84 21 117/58 L 100 11/29/18 12:00 11/29/18 12:00 11/29/18 12:00 11/29/18 11:50 11/29/18 12:00 Intake and Output: 11/29/18 11/29/18 06:59 18:59 Intake Total 900 750 Output Total 1100 Balance -200 750 - Medications Medications: Current Medications Heparin Sodium (Porcine) (Heparin) 5,000 units SC Q8 [facility] Last Admin: 11/29/18 05:37 Dose: 5,000 units Dextrose/Sodium Chloride (Dextrose 5%/0.9% Ns 1000 Ml) 1,000 mls @ 150 mls/hr IV .Q6H40M [facility] Last Admin: 11/29/18 05:41 Dose: 150 mls/hr Ondansetron HCl (Zofran Inj) 4 mg IVP Q6H PRN PRN Reason: Nausea/Vomiting Last Admin: 11/29/18 03:16 Dose: 4 mg - Labs Labs: 11/29/18 06:15 11/29/18 06:14 - Constitutional Appears: Non-toxic, No Acute Distress, Confused - Head Exam Head Exam: NORMAL INSPECTION - Eye Exam Eye Exam: EOMI, PERRL. absent: Nystagmus Pupil Exam: PERRL - ENT Exam ENT Exam: Mucous Membranes Dry - Respiratory Exam Respiratory Exam: Clear to Ausculation Bilateral, NORMAL BREATHING PATTERN. absent: Rales, Rhonchi, Wheezes - Cardiovascular Exam Cardiovascular Exam: REGULAR RHYTHM, +S1, +S2 - GI/Abdominal Exam GI & Abdominal Exam: Soft, Normal Bowel Sounds. absent: Distended, Firm, Guarding, Rigid, Tenderness, Rebound - Extremities Exam Extremities Exam: absent: Pedal Edema - Back Exam Back Exam: absent: CVA tenderness (L), CVA tenderness (R), paraspinal tenderness - Neurological Exam Neurological Exam: Alert Neuro motor strength exam: Left Upper Extremity: 3, Right Upper Extremity: 3, Left Lower Extremity: 3, Right Lower Extremity: 3 - Psychiatric Exam Additional comments: lethargic - Skin Skin Exam: Dry, Intact, Normal Color, Warm Assessment and Plan (1) Encephalopathy Assessment & Plan: unclear etiology Patient takes Fiorcet as needed for migraines however has not had formal neurology evaluation in the past other than CT and suspected seizure history CT head negative Narcan 0.8mg IVP X2 tylenol level low barbiturates positive positive cannabinods UA: negative pending urine culture pending eeg Status: Acute (2) Seizure disorder Assessment & Plan: prior history Ct head: negative chest xray: negative Status: Acute (3) Prophylactic measure Assessment & Plan: heparin 5000 units subq8H IV fluids Status: Acute Attending/Attestation - Attestation I have personally seen and examined this patient.: Yes I have fully participated in the care of the patient.: Yes I have reviewed all pertinent clinical information, including history, physical exam and plan: Yes
--- NOTE | 2018-11-29 15:06 | CP.PCM.CON ---
History of Present Illness - History of Present Illness History of Present Illness: Neurology consult dictated. Chart reviewed Miss Henley is a 23 yr old woman who is here after she found to be unreponsive from ?medication overuse. Currently she is awake and responsive, but this is vacillating. A/p: encephalopathy, no signs of stroke. Plan: 1. EEG 2. Psychiatry consult for anxiety Dr. aquino Neurology Past Patient History - Past Medical History & Family History Past Medical History?: Yes - Past Social History Smoking Status: Never Smoked Alcohol: None Drugs: Denies Home Situation {Lives}: With Family - CARDIAC Hx Cardiac Disorders: No - PULMONARY Hx Respiratory Disorders: No - NEUROLOGICAL Hx Neurological Disorder: Yes Hx Migraine: Yes - HEENT Hx HEENT Problems: No - RENAL Hx Chronic Kidney Disease: No - ENDOCRINE/METABOLIC Hx Endocrine Disorders: No - HEMATOLOGICAL/ONCOLOGICAL Hx Blood Disorders: No - INTEGUMENTARY Hx Dermatological Problems: No - MUSCULOSKELETAL/RHEUMATOLOGICAL Hx Falls: No - GASTROINTESTINAL Hx Gastrointestinal Disorders: No - GENITOURINARY/GYNECOLOGICAL Hx Genitourinary Disorders: No - PSYCHIATRIC Hx Substance Use: No - SURGICAL HISTORY Hx Surgeries: No - ANESTHESIA Hx Anesthesia: No Meds Allergies/Adverse Reactions: Allergies Allergy/AdvReac Type Severity Reaction Status Date / Time No Known Allergies Allergy Verified 11/28/18 21:27 - Medications Medications: Current Medications Heparin Sodium (Porcine) (Heparin) 5,000 units SC Q8 [facility] Last Admin: 11/29/18 13:30 Dose: 5,000 units Dextrose/Sodium Chloride (Dextrose 5%/0.9% Ns 1000 Ml) 1,000 mls @ 150 mls/hr IV .Q6H40M [facility] Last Admin: 11/29/18 13:31 Dose: 150 mls/hr Ondansetron HCl (Zofran Inj) 4 mg IVP Q6H PRN PRN Reason: Nausea/Vomiting Last Admin: 11/29/18 03:16 Dose: 4 mg Results - Vital Signs Recent Vital Signs: Last Vital Signs Temp 97.6 F 11/29/18 12:00 Pulse 78 11/29/18 14:00 Resp 18 11/29/18 14:00 BP 114/53 L 11/29/18 13:49 Pulse Ox 100 11/29/18 14:00 - Labs Result Diagrams: 11/29/18 06:15 11/29/18 06:14 Labs: Laboratory Results - last 24 hr 11/28/18 11/28/18 11/28/18 21:25 21:30 21:35 WBC 11.2 H RBC 4.85 Hgb 13.8 Hct 41.3 MCV 85.0 MCH 28.4 MCHC 33.5 RDW 13.8 Plt Count 280 MPV 8.5 Neut % (Auto) 64.7 Lymph % (Auto) 26.7 [place] % (Auto) 6.6 Eos % (Auto) 1.6 Baso % (Auto) 0.4 Neut # (Auto) 7.3 H Lymph # (Auto) 3.0 [place] # (Auto) 0.7 Eos # (Auto) 0.2 Baso # (Auto) 0.0 Neutrophils % (Manual) Lymphocytes % (Manual) Monocytes % (Manual) Platelet Estimate Puncture Site pCO2 pO2 HCO3 ABG pH ABG Total CO2 ABG O2 Saturation ABG Base Excess ABG Hemoglobin ABG Carboxyhemoglobin POC ABG HHb (Measured) ABG Methemoglobin Eddi Test ABG Potassium VBG pH VBG pCO2 VBG HCO3 VBG Total CO2 VBG O2 Sat (Calc) VBG Base Excess VBG Potassium A-a O2 Difference Respiratory Index Hgb O2 Saturation Glucose Lactate Liter Flow FiO2 Sodium Potassium Chloride Carbon Dioxide Anion Gap BUN Creatinine Est GFR ( Amer) Est GFR (Non-Af Amer) POC Glucose (mg/dL) 102 Random Glucose Serum Osmolality Calcium Phosphorus Magnesium Total Bilirubin AST ALT Alkaline Phosphatase Ammonia Total Protein Albumin Globulin Albumin/Globulin Ratio Arterial Blood Potassium Venous Blood Potassium Urine Color Urine Clarity Urine pH Ur Specific [place] Urine Protein Urine Glucose (UA) Urine Ketones Urine Blood Urine Nitrate Urine Bilirubin Urine Urobilinogen Ur Leukocyte Esterase Urine WBC (Auto) Ur Squamous Epith Cells Urine HCG, Qual Salicylates Urine Opiates Screen Urine Methadone Screen Acetaminophen Ur Barbiturates Screen Valproic Acid Ur Phencyclidine Scrn Ur Amphetamines Screen U Benzodiazepines Scrn U Oth Cocaine Metabols U Cannabinoids Screen Alcohol, Quantitative < 10 11/28/18 11/28/18 11/28/18 21:35 21:35 21:35 WBC RBC Hgb Hct MCV MCH MCHC RDW Plt Count MPV Neut % (Auto) Lymph % (Auto) [place] % (Auto) Eos % (Auto) Baso % (Auto) Neut # (Auto) Lymph # (Auto) [place] # (Auto) Eos # (Auto) Baso # (Auto) Neutrophils % (Manual) Lymphocytes % (Manual) Monocytes % (Manual) Platelet Estimate Puncture Site pCO2 pO2 HCO3 ABG pH ABG Total CO2 ABG O2 Saturation ABG Base Excess ABG Hemoglobin ABG Carboxyhemoglobin POC ABG HHb (Measured) ABG Methemoglobin Eddi Test ABG Potassium VBG pH VBG pCO2 VBG HCO3 VBG Total CO2 VBG O2 Sat (Calc) VBG Base Excess VBG Potassium A-a O2 Difference Respiratory Index Hgb O2 Saturation Glucose Lactate Liter Flow FiO2 Sodium 140 Potassium 3.9 Chloride 108 H Carbon Dioxide 24 Anion Gap 12 BUN 13 Creatinine 0.5 L Est GFR ( Amer) > 60 Est GFR (Non-Af Amer) > 60 POC Glucose (mg/dL) Random Glucose 108 H Serum Osmolality Calcium 9.6 Phosphorus 3.4 Magnesium 2.3 Total Bilirubin 0.3 AST 35 ALT 10 Alkaline Phosphatase 65 Ammonia Total Protein 7.6 Albumin 4.6 Globulin 3.1 Albumin/Globulin Ratio 1.5 Arterial Blood Potassium Venous Blood Potassium Urine Color Colorless Urine Clarity Clear Urine pH 6.0 Ur Specific [place] 1.004 Urine Protein Negative Urine Glucose (UA) Normal Urine Ketones Negative Urine Blood Negative Urine Nitrate Negative Urine Bilirubin Negative Urine Urobilinogen Normal Ur Leukocyte Esterase Neg Urine WBC (Auto) < 1 Ur Squamous Epith Cells 1 Urine HCG, Qual Negative Salicylates Urine Opiates Screen Negative Urine Methadone Screen Negative Acetaminophen Ur Barbiturates Screen Positive H Valproic Acid Ur Phencyclidine Scrn Negative Ur Amphetamines Screen Negative U Benzodiazepines Scrn Negative U Oth Cocaine Metabols Negative U Cannabinoids Screen Positive H Alcohol, Quantitative 11/28/18 11/28/18 11/28/18 21:46 22:20 22:40 WBC RBC Hgb Hct MCV MCH MCHC RDW Plt Count MPV Neut % (Auto) Lymph % (Auto) [place] % (Auto) Eos % (Auto) Baso % (Auto) Neut # (Auto) Lymph # (Auto) [place] # (Auto) Eos # (Auto) Baso # (Auto) Neutrophils % (Manual) Lymphocytes % (Manual) Monocytes % (Manual) Platelet Estimate Puncture Site Rb pCO2 35 pO2 363 H 52 HCO3 19.7 L ABG pH 7.33 L ABG Total CO2 19.6 L ABG O2 Saturation 99.6 H ABG Base Excess -6.7 L ABG Hemoglobin 12.1 ABG Carboxyhemoglobin 1.0 POC ABG HHb (Measured) 0.4 ABG Methemoglobin 0.7 Eddi Test Na ABG Potassium VBG pH 7.25 L VBG pCO2 52 VBG HCO3 20.6 VBG Total CO2 24.4 VBG O2 Sat (Calc) 88.0 H VBG Base Excess -4.9 L VBG Potassium 4.0 A-a O2 Difference 306.0 Respiratory Index 0.8 Hgb O2 Saturation 97.9 Glucose 108 H Lactate 0.9 Liter Flow FiO2 100.0 Sodium 140.0 Potassium Chloride 108.0 H Carbon Dioxide Anion Gap BUN Creatinine Est GFR ( Amer) Est GFR (Non-Af Amer) POC Glucose (mg/dL) Random Glucose Serum Osmolality Calcium Phosphorus Magnesium Total Bilirubin AST ALT Alkaline Phosphatase Ammonia Total Protein Albumin Globulin Albumin/Globulin Ratio Arterial Blood Potassium Venous Blood Potassium 4.0 Urine Color Urine Clarity Urine pH Ur Specific [place] Urine Protein Urine Glucose (UA) Urine Ketones Urine Blood Urine Nitrate Urine Bilirubin Urine Urobilinogen Ur Leukocyte Esterase Urine WBC (Auto) Ur Squamous Epith Cells Urine HCG, Qual Salicylates < 1.0 Urine Opiates Screen Urine Methadone Screen Acetaminophen < 10.0 L Ur Barbiturates Screen Valproic Acid Ur Phencyclidine Scrn Ur Amphetamines Screen U Benzodiazepines Scrn U Oth Cocaine Metabols U Cannabinoids Screen Alcohol, Quantitative 11/29/18 11/29/18 11/29/18 01:35 01:49 06:14 WBC RBC Hgb Hct MCV MCH MCHC RDW Plt Count MPV Neut % (Auto) Lymph % (Auto) [place] % (Auto) Eos % (Auto) Baso % (Auto) Neut # (Auto) Lymph # (Auto) [place] # (Auto) Eos # (Auto) Baso # (Auto) Neutrophils % (Manual) Lymphocytes % (Manual) Monocytes % (Manual) Platelet Estimate Puncture Site Rradial pCO2 49 H pO2 603 H HCO3 20.9 L ABG pH 7.26 L ABG Total CO2 23.5 ABG O2 Saturation 100.2 H ABG Base Excess -5.3 L ABG Hemoglobin ABG Carboxyhemoglobin POC ABG HHb (Measured) ABG Methemoglobin Eddi Test Pos ABG Potassium 3.9 VBG pH VBG pCO2 VBG HCO3 VBG Total CO2 VBG O2 Sat (Calc) VBG Base Excess VBG Potassium A-a O2 Difference 49.0 Respiratory Index 0.1 Hgb O2 Saturation Glucose 169 H Lactate 0.7 Liter Flow 12.0 FiO2 100.0 Sodium 140.0 142 Potassium 4.5 Chloride 113.0 H 114 H Carbon Dioxide 21 L Anion Gap 11 BUN 8 Creatinine 0.4 L Est GFR ( Amer) > 60 Est GFR (Non-Af Amer) > 60 POC Glucose (mg/dL) Random Glucose 155 H D Serum Osmolality Calcium 8.2 L Phosphorus Magnesium Total Bilirubin 0.4 AST 24 ALT 16 Alkaline Phosphatase 56 Ammonia Total Protein 6.7 Albumin 3.8 Globulin 2.9 Albumin/Globulin Ratio 1.3 Arterial Blood Potassium 3.9 Venous Blood Potassium Urine Color Urine Clarity Urine pH Ur Specific [place] Urine Protein Urine Glucose (UA) Urine Ketones Urine Blood Urine Nitrate Urine Bilirubin Urine Urobilinogen Ur Leukocyte Esterase Urine WBC (Auto) Ur Squamous Epith Cells Urine HCG, Qual Salicylates Urine Opiates Screen Urine Methadone Screen Acetaminophen < 10.0 L Ur Barbiturates Screen Valproic Acid Ur Phencyclidine Scrn Ur Amphetamines Screen U Benzodiazepines Scrn U Oth Cocaine Metabols U Cannabinoids Screen Alcohol, Quantitative 11/29/18 11/29/18 11/29/18 06:14 06:14 06:15 WBC 12.0 H RBC 4.69 Hgb 13.9 Hct 41.4 MCV 88.1 D MCH 29.7 MCHC 33.7 RDW 14.1 Plt Count 262 MPV 9.5 Neut % (Auto) 88.1 H Lymph % (Auto) 7.4 L [place] % (Auto) 4.3 Eos % (Auto) 0.1 Baso % (Auto) 0.1 Neut # (Auto) 10.6 H Lymph # (Auto) 0.9 L [place] # (Auto) 0.5 Eos # (Auto) 0.0 Baso # (Auto) 0.0 Neutrophils % (Manual) 86 H Lymphocytes % (Manual) 9 L Monocytes % (Manual) 5 Platelet Estimate Normal Puncture Site pCO2 pO2 HCO3 ABG pH ABG Total CO2 ABG O2 Saturation ABG Base Excess ABG Hemoglobin ABG Carboxyhemoglobin POC ABG HHb (Measured) ABG Methemoglobin Eddi Test ABG Potassium VBG pH VBG pCO2 VBG HCO3 VBG Total CO2 VBG O2 Sat (Calc) VBG Base Excess VBG Potassium A-a O2 Difference Respiratory Index Hgb O2 Saturation Glucose Lactate Liter Flow FiO2 Sodium Potassium Chloride Carbon Dioxide Anion Gap BUN Creatinine Est GFR ( Amer) Est GFR (Non-Af Amer) POC Glucose (mg/dL) Random Glucose Serum Osmolality Calcium Phosphorus Magnesium Total Bilirubin AST ALT Alkaline Phosphatase Ammonia 34 H Total Protein Albumin Globulin Albumin/Globulin Ratio Arterial Blood Potassium Venous Blood Potassium Urine Color Urine Clarity Urine pH Ur Specific [place] Urine Protein Urine Glucose (UA) Urine Ketones Urine Blood Urine Nitrate Urine Bilirubin Urine Urobilinogen Ur Leukocyte Esterase Urine WBC (Auto) Ur Squamous Epith Cells Urine HCG, Qual Salicylates Urine Opiates Screen Urine Methadone Screen Acetaminophen Ur Barbiturates Screen Valproic Acid < 10.0 L Ur Phencyclidine Scrn Ur Amphetamines Screen U Benzodiazepines Scrn U Oth Cocaine Metabols U Cannabinoids Screen Alcohol, Quantitative 11/29/18 11/29/18 11/29/18 06:40 08:08 08:08 WBC RBC Hgb Hct MCV MCH MCHC RDW Plt Count MPV Neut % (Auto) Lymph % (Auto) [place] % (Auto) Eos % (Auto) Baso % (Auto) Neut # (Auto) Lymph # (Auto) [place] # (Auto) Eos # (Auto) Baso # (Auto) Neutrophils % (Manual) Lymphocytes % (Manual) Monocytes % (Manual) Platelet Estimate Puncture Site Rradial pCO2 43 pO2 157 H HCO3 20.5 L ABG pH 7.29 L ABG Total CO2 22.0 ABG O2 Saturation 99.2 H ABG Base Excess -5.7 L ABG Hemoglobin 12.8 ABG Carboxyhemoglobin 0.8 POC ABG HHb (Measured) 0.8 ABG Methemoglobin 0.4 Eddi Test Pos ABG Potassium VBG pH VBG pCO2 VBG HCO3 VBG Total CO2 VBG O2 Sat (Calc) VBG Base Excess VBG Potassium A-a O2 Difference -11.0 Respiratory Index -0.1 Hgb O2 Saturation 97.9 Glucose Lactate Liter Flow 2.0 FiO2 28.0 Sodium Potassium Chloride Carbon Dioxide Anion Gap BUN Creatinine Est GFR ( Amer) Est GFR (Non-Af Amer) POC Glucose (mg/dL) Random Glucose Serum Osmolality 301 H Calcium Phosphorus Magnesium Total Bilirubin AST ALT Alkaline Phosphatase Ammonia Total Protein Albumin Globulin Albumin/Globulin Ratio Arterial Blood Potassium Venous Blood Potassium Urine Color Urine Clarity Urine pH Ur Specific [place] Urine Protein Urine Glucose (UA) Urine Ketones Urine Blood Urine Nitrate Urine Bilirubin Urine Urobilinogen Ur Leukocyte Esterase Urine WBC (Auto) Ur Squamous Epith Cells Urine HCG, Qual Salicylates Urine Opiates Screen Urine Methadone Screen Acetaminophen Ur Barbiturates Screen Valproic Acid < 10.0 L Ur Phencyclidine Scrn Ur Amphetamines Screen U Benzodiazepines Scrn U Oth Cocaine Metabols U Cannabinoids Screen Alcohol, Quantitative 11/29/18 10:48 WBC RBC Hgb Hct MCV MCH MCHC RDW Plt Count MPV Neut % (Auto) Lymph % (Auto) [place] % (Auto) Eos % (Auto) Baso % (Auto) Neut # (Auto) Lymph # (Auto) [place] # (Auto) Eos # (Auto) Baso # (Auto) Neutrophils % (Manual) Lymphocytes % (Manual) Monocytes % (Manual) Platelet Estimate Puncture Site Rra pCO2 28 L pO2 154 H HCO3 22.8 ABG pH 7.46 H ABG Total CO2 20.8 L ABG O2 Saturation 99.3 H ABG Base Excess -2.7 L ABG Hemoglobin 13.0 ABG Carboxyhemoglobin 0.9 POC ABG HHb (Measured) 0.7 ABG Methemoglobin 0.9 Eddi Test Po ABG Potassium VBG pH VBG pCO2 VBG HCO3 VBG Total CO2 VBG O2 Sat (Calc) VBG Base Excess VBG Potassium A-a O2 Difference 11.0 Respiratory Index 0.1 Hgb O2 Saturation 97.4 Glucose Lactate Liter Flow 2.0 FiO2 28.0 Sodium Potassium Chloride Carbon Dioxide Anion Gap BUN Creatinine Est GFR ( Amer) Est GFR (Non-Af Amer) POC Glucose (mg/dL) Random Glucose Serum Osmolality Calcium Phosphorus Magnesium Total Bilirubin AST ALT Alkaline Phosphatase Ammonia Total Protein Albumin Globulin Albumin/Globulin Ratio Arterial Blood Potassium Venous Blood Potassium Urine Color Urine Clarity Urine pH Ur Specific [place] Urine Protein Urine Glucose (UA) Urine Ketones Urine Blood Urine Nitrate Urine Bilirubin Urine Urobilinogen Ur Leukocyte Esterase Urine WBC (Auto) Ur Squamous Epith Cells Urine HCG, Qual Salicylates Urine Opiates Screen Urine Methadone Screen Acetaminophen Ur Barbiturates Screen Valproic Acid Ur Phencyclidine Scrn Ur Amphetamines Screen U Benzodiazepines Scrn U Oth Cocaine Metabols U Cannabinoids Screen Alcohol, Quantitative
--- NOTE | 2018-11-29 17:43 | CP.CCUPN ---
CCU Subjective - Physician Review Events Since Last Encounter (Free Text): 11/29/18 17:53 PGY-1 Critical Care Progress Note for Dr. Adkins Patient seen and examined at bedside. She became more awake and seemingly alert over the course of the day. Anxious-appearing, family noted to be hovering over patient and many family members in room at once and security had to be called for family members being disruptive. CCU Objective - Vital Signs / Intake & Output Vital Signs (Last 4 hours): Vital Signs Temp Pulse Resp BP Pulse Ox 11/29/18 17:00 64 42 H 128/55 L 100 11/29/18 16:51 79 27 H 128/55 L 11/29/18 16:00 97.8 F 74 20 99 11/29/18 15:50 99 H 34 H 129/76 77 L 11/29/18 15:00 76 16 100 11/29/18 14:49 76 23 123/66 98 11/29/18 14:00 78 18 100 11/29/18 13:49 78 17 114/53 L 100 Intake and Output (Last 8hrs): Intake & Output 11/29/18 11/29/18 11/29/18 06:59 14:59 22:59 Intake Total 900 1050 450 Output Total 1100 Balance -200 1050 450 Weight 148 lb 9.6 oz Intake: Intake, IV Amount 900 1050 450 Left Antecubital 900 1050 450 Oral 0 0 Output: Urine 1100 Urine, Voided 1100 Other: # Bowel Movements 0 0 - Physical Exam Physical Exam Limitations: Positive for: Altered Mental Status Head: Positive for: Atraumatic, Normocephalic Pupils: Positive for: PERRL Extroacular Muscles: Positive for: EOMI Mouth: Positive for: Moist Mucous Membranes Neck: Positive for: Normal Range of Motion Respiratory/Chest: Positive for: Clear to Auscultation, Tachypneic (noted to be tachypneic during the afternoon which then resolved). Negative for: Accessory Muscle Use, Rales, Rhonchi Cardiovascular: Positive for: Regular Rate and Rhythm, Normal S1, S2 Abdomen: Negative for: Tenderness, Distention Neurological: Positive for: CN II-XII Intact, Other (Awake, responding to name and commands. Mostly nonverbal but did say name per nursing.) - Medications Active Medications: Active Medications Generic Name Dose Route Start Last Admin Trade Name Freq PRN Reason Stop Dose Admin Heparin Sodium (Porcine) 5,000 units 11/28/18 23:30 11/29/18 13:30 Heparin SC 5,000 units Q8 RACHEL Administration Dextrose/Sodium Chloride 1,000 mls @ 150 mls/hr 11/28/18 23:30 11/29/18 13:31 Dextrose 5%/0.9% Ns 1000 Ml IV 150 mls/hr .[id number] RACHEL Administration Ondansetron HCl 4 mg 11/29/18 02:00 11/29/18 03:16 Zofran Inj IVP 4 mg Q6H PRN Administration Nausea/Vomiting - Patient Studies Lab Studies: Lab Studies 11/29/18 11/29/18 11/29/18 Range/Units 10:48 08:08 08:08 WBC (4.8-10.8) K/uL RBC (3.80-5.20) Mil/uL Hgb (11.0-16.0) g/dL Hct (34.0-47.0) % MCV (81.0-99.0) fL MCH (27.0-31.0) pg MCHC (33.0-37.0) g/dL RDW (11.5-14.5) % Plt Count (130-400) K/uL MPV (7.2-11.7) fL Neut % (Auto) (50.0-75.0) % Lymph % (Auto) (20.0-40.0) % [place] % (Auto) (0.0-10.0) % Eos % (Auto) (0.0-4.0) % Baso % (Auto) (0.0-2.0) % Neut # (Auto) (1.8-7.0) K/uL Lymph # (Auto) (1.0-4.3) K/uL [place] # (Auto) (0.0-0.8) K/uL Eos # (Auto) (0.0-0.7) K/uL Baso # (Auto) (0.0-0.2) K/uL Neutrophils % (Manual) (50-75) % Lymphocytes % (Manual) (20-40) % Monocytes % (Manual) (0-10) % Platelet Estimate (NORMAL) Puncture Site Rra pCO2 28 L (35-45) mm/Hg pO2 154 H (80-100) mm/Hg HCO3 22.8 (21-28) mmol/L ABG pH 7.46 H (7.35-7.45) ABG Total CO2 20.8 L (22-28) mmol/L ABG O2 Saturation 99.3 H (95-98) % ABG Base Excess -2.7 L (-2.0-3.0) mmol/L ABG Hemoglobin 13.0 (11.7-17.4) g/dL ABG Carboxyhemoglobin 0.9 (0.5-1.5) % POC ABG HHb (Measured) 0.7 (0.0-5.0) % ABG Methemoglobin 0.9 (0.0-3.0) % Eddi Test Po ABG Potassium (3.6-5.2) mmol/L VBG pH (7.32-7.43) VBG pCO2 (40-60) mmHg VBG HCO3 mmol/L VBG Total CO2 (22-28) mmol/L VBG O2 Sat (Calc) (40-65) % VBG Base Excess (0.0-2.0) mmol/L VBG Potassium (3.6-5.2) mmol/L A-a O2 Difference 11.0 mm/Hg Respiratory Index 0.1 Hgb O2 Saturation 97.4 (95.0-98.0) % Glucose (65-105) mg/dl Lactate (0.7-2.1) mmol/L Liter Flow 2.0 FiO2 28.0 % Sodium (132-148) mmol/L Potassium (3.6-5.2) mmol/L Chloride (98-107) mmol/L Carbon Dioxide (22-30) mmol/L Anion Gap (10-20) BUN (7-17) mg/dL Creatinine (0.7-1.2) mg/dL Est GFR ( Amer) Est GFR (Non-Af Amer) POC Glucose (mg/dL) (65-110) mg/dL Random Glucose (65-105) mg/dL Serum Osmolality 301 H (272-300) mosm/kg Calcium (8.6-10.4) mg/dl Phosphorus (2.5-4.5) mg/dL Magnesium (1.6-2.3) mg/dL Total Bilirubin (0.2-1.3) mg/dL AST (14-36) U/L ALT (9-52) U/L Alkaline Phosphatase (38-126) U/L Ammonia (9-33) umol/L Total Protein (6.3-8.3) g/dL Albumin (3.5-5.0) g/dL Globulin (2.2-3.9) gm/dL Albumin/Globulin Ratio (1.0-2.1) Arterial Blood Potassium (3.6-5.2) mmol/L Venous Blood Potassium (3.6-5.2) mmol/L Urine Color (YELLOW) Urine Clarity (Clear) Urine pH (5.0-8.0) Ur Specific [place] (1.003-1.030) Urine Protein (NEGATIVE) mg/dL Urine Glucose (UA) (Normal) mg/dL Urine Ketones (NEGATIVE) mg/dL Urine Blood (NEGATIVE) Urine Nitrate (NEGATIVE) Urine Bilirubin (NEGATIVE) Urine Urobilinogen (0.2-1.0) mg/dL Ur Leukocyte Esterase (Negative) Janis/uL Urine WBC (Auto) (0-5) /hpf Ur Squamous Epith Cells (0-5) /hpf Urine HCG, Qual (NEGATIVE) Salicylates mg/dL 1 Urine Opiates Screen (NEGATIVE) Urine Methadone Screen (NEGATIVE) Acetaminophen (10.0-30.0) ug/mL Ur Barbiturates Screen (NEGATIVE) Valproic Acid < 10.0 L (50.0-100.0) ug/mL Ur Phencyclidine Scrn (NEGATIVE) Ur Amphetamines Screen (NEGATIVE) U Benzodiazepines Scrn (NEGATIVE) U Oth Cocaine Metabols (NEGATIVE) U Cannabinoids Screen (NEGATIVE) Alcohol, Quantitative (0-10) mg/dl 11/29/18 11/29/18 11/29/18 Range/Units 06:40 06:15 06:14 WBC 12.0 H (4.8-10.8) K/uL RBC 4.69 (3.80-5.20) Mil/uL Hgb 13.9 (11.0-16.0) g/dL Hct 41.4 (34.0-47.0) % MCV 88.1 D (81.0-99.0) fL MCH 29.7 (27.0-31.0) pg MCHC 33.7 (33.0-37.0) g/dL RDW 14.1 (11.5-14.5) % Plt Count 262 (130-400) K/uL MPV 9.5 (7.2-11.7) fL Neut % (Auto) 88.1 H (50.0-75.0) % Lymph % (Auto) 7.4 L (20.0-40.0) % [place] % (Auto) 4.3 (0.0-10.0) % Eos % (Auto) 0.1 (0.0-4.0) % Baso % (Auto) 0.1 (0.0-2.0) % Neut # (Auto) 10.6 H (1.8-7.0) K/uL Lymph # (Auto) 0.9 L (1.0-4.3) K/uL [place] # (Auto) 0.5 (0.0-0.8) K/uL Eos # (Auto) 0.0 (0.0-0.7) K/uL Baso # (Auto) 0.0 (0.0-0.2) K/uL Neutrophils % (Manual) 86 H (50-75) % Lymphocytes % (Manual) 9 L (20-40) % Monocytes % (Manual) 5 (0-10) % Platelet Estimate Normal (NORMAL) Puncture Site Rradial pCO2 43 (35-45) mm/Hg pO2 157 H (80-100) mm/Hg HCO3 20.5 L (21-28) mmol/L ABG pH 7.29 L (7.35-7.45) ABG Total CO2 22.0 (22-28) mmol/L ABG O2 Saturation 99.2 H (95-98) % ABG Base Excess -5.7 L (-2.0-3.0) mmol/L ABG Hemoglobin 12.8 (11.7-17.4) g/dL ABG Carboxyhemoglobin 0.8 (0.5-1.5) % POC ABG HHb (Measured) 0.8 (0.0-5.0) % ABG Methemoglobin 0.4 (0.0-3.0) % Eddi Test Pos ABG Potassium (3.6-5.2) mmol/L VBG pH (7.32-7.43) VBG pCO2 (40-60) mmHg VBG HCO3 mmol/L VBG Total CO2 (22-28) mmol/L VBG O2 Sat (Calc) (40-65) % VBG Base Excess (0.0-2.0) mmol/L VBG Potassium (3.6-5.2) mmol/L A-a O2 Difference -11.0 mm/Hg Respiratory Index -0.1 Hgb O2 Saturation 97.9 (95.0-98.0) % Glucose (65-105) mg/dl Lactate (0.7-2.1) mmol/L Liter Flow 2.0 FiO2 28.0 % Sodium (132-148) mmol/L Potassium (3.6-5.2) mmol/L Chloride (98-107) mmol/L Carbon Dioxide (22-30) mmol/L Anion Gap (10-20) BUN (7-17) mg/dL Creatinine (0.7-1.2) mg/dL Est GFR ( Amer) Est GFR (Non-Af Amer) POC Glucose (mg/dL) (65-110) mg/dL Random Glucose (65-105) mg/dL Serum Osmolality (272-300) mosm/kg Calcium (8.6-10.4) mg/dl Phosphorus (2.5-4.5) mg/dL Magnesium (1.6-2.3) mg/dL Total Bilirubin (0.2-1.3) mg/dL AST (14-36) U/L ALT (9-52) U/L Alkaline Phosphatase (38-126) U/L Ammonia (9-33) umol/L Total Protein (6.3-8.3) g/dL Albumin (3.5-5.0) g/dL Globulin (2.2-3.9) gm/dL Albumin/Globulin Ratio (1.0-2.1) Arterial Blood Potassium (3.6-5.2) mmol/L Venous Blood Potassium (3.6-5.2) mmol/L Urine Color (YELLOW) Urine Clarity (Clear) Urine pH (5.0-8.0) Ur Specific [place] (1.003-1.030) Urine Protein (NEGATIVE) mg/dL Urine Glucose (UA) (Normal) mg/dL Urine Ketones (NEGATIVE) mg/dL Urine Blood (NEGATIVE) Urine Nitrate (NEGATIVE) Urine Bilirubin (NEGATIVE) Urine Urobilinogen (0.2-1.0) mg/dL Ur Leukocyte Esterase (Negative) Janis/uL Urine WBC (Auto) (0-5) /hpf Ur Squamous Epith Cells (0-5) /hpf Urine HCG, Qual (NEGATIVE) Salicylates mg/dL 1 Urine Opiates Screen (NEGATIVE) Urine Methadone Screen (NEGATIVE) Acetaminophen (10.0-30.0) ug/mL Ur Barbiturates Screen (NEGATIVE) Valproic Acid < 10.0 L (50.0-100.0) ug/mL Ur Phencyclidine Scrn (NEGATIVE) Ur Amphetamines Screen (NEGATIVE) U Benzodiazepines Scrn (NEGATIVE) U Oth Cocaine Metabols (NEGATIVE) U Cannabinoids Screen (NEGATIVE) Alcohol, Quantitative (0-10) mg/dl 11/29/18 11/29/18 11/29/18 Range/Units 06:14 06:14 01:49 WBC (4.8-10.8) K/uL RBC (3.80-5.20) Mil/uL Hgb (11.0-16.0) g/dL Hct (34.0-47.0) % MCV (81.0-99.0) fL MCH (27.0-31.0) pg MCHC (33.0-37.0) g/dL RDW (11.5-14.5) % Plt Count (130-400) K/uL MPV (7.2-11.7) fL Neut % (Auto) (50.0-75.0) % Lymph % (Auto) (20.0-40.0) % [place] % (Auto) (0.0-10.0) % Eos % (Auto) (0.0-4.0) % Baso % (Auto) (0.0-2.0) % Neut # (Auto) (1.8-7.0) K/uL Lymph # (Auto) (1.0-4.3) K/uL [place] # (Auto) (0.0-0.8) K/uL Eos # (Auto) (0.0-0.7) K/uL Baso # (Auto) (0.0-0.2) K/uL Neutrophils % (Manual) (50-75) % Lymphocytes % (Manual) (20-40) % Monocytes % (Manual) (0-10) % Platelet Estimate (NORMAL) Puncture Site pCO2 (35-45) mm/Hg pO2 (80-100) mm/Hg HCO3 (21-28) mmol/L ABG pH (7.35-7.45) ABG Total CO2 (22-28) mmol/L ABG O2 Saturation (95-98) % ABG Base Excess (-2.0-3.0) mmol/L ABG Hemoglobin (11.7-17.4) g/dL ABG Carboxyhemoglobin (0.5-1.5) % POC ABG HHb (Measured) (0.0-5.0) % ABG Methemoglobin (0.0-3.0) % Eddi Test ABG Potassium (3.6-5.2) mmol/L VBG pH (7.32-7.43) VBG pCO2 (40-60) mmHg VBG HCO3 mmol/L VBG Total CO2 (22-28) mmol/L VBG O2 Sat (Calc) (40-65) % VBG Base Excess (0.0-2.0) mmol/L VBG Potassium (3.6-5.2) mmol/L A-a O2 Difference mm/Hg Respiratory Index Hgb O2 Saturation (95.0-98.0) % Glucose (65-105) mg/dl Lactate (0.7-2.1) mmol/L Liter Flow FiO2 % Sodium 142 (132-148) mmol/L Potassium 4.5 (3.6-5.2) mmol/L Chloride 114 H (98-107) mmol/L Carbon Dioxide 21 L (22-30) mmol/L Anion Gap 11 (10-20) BUN 8 (7-17) mg/dL Creatinine 0.4 L (0.7-1.2) mg/dL Est GFR ( Amer) > 60 Est GFR (Non-Af Amer) > 60 POC Glucose (mg/dL) (65-110) mg/dL Random Glucose 155 H D (65-105) mg/dL Serum Osmolality (272-300) mosm/kg Calcium 8.2 L (8.6-10.4) mg/dl Phosphorus (2.5-4.5) mg/dL Magnesium (1.6-2.3) mg/dL Total Bilirubin 0.4 (0.2-1.3) mg/dL AST 24 (14-36) U/L ALT 16 (9-52) U/L Alkaline Phosphatase 56 (38-126) U/L Ammonia 34 H (9-33) umol/L Total Protein 6.7 (6.3-8.3) g/dL Albumin 3.8 (3.5-5.0) g/dL Globulin 2.9 (2.2-3.9) gm/dL Albumin/Globulin Ratio 1.3 (1.0-2.1) Arterial Blood Potassium (3.6-5.2) mmol/L Venous Blood Potassium (3.6-5.2) mmol/L Urine Color (YELLOW) Urine Clarity (Clear) Urine pH (5.0-8.0) Ur Specific [place] (1.003-1.030) Urine Protein (NEGATIVE) mg/dL Urine Glucose (UA) (Normal) mg/dL Urine Ketones (NEGATIVE) mg/dL Urine Blood (NEGATIVE) Urine Nitrate (NEGATIVE) Urine Bilirubin (NEGATIVE) Urine Urobilinogen (0.2-1.0) mg/dL Ur Leukocyte Esterase (Negative) Janis/uL Urine WBC (Auto) (0-5) /hpf Ur Squamous Epith Cells (0-5) /hpf Urine HCG, Qual (NEGATIVE) Salicylates mg/dL 1 Urine Opiates Screen (NEGATIVE) Urine Methadone Screen (NEGATIVE) Acetaminophen < 10.0 L (10.0-30.0) ug/mL Ur Barbiturates Screen (NEGATIVE) Valproic Acid (50.0-100.0) ug/mL Ur Phencyclidine Scrn (NEGATIVE) Ur Amphetamines Screen (NEGATIVE) U Benzodiazepines Scrn (NEGATIVE) U Oth Cocaine Metabols (NEGATIVE) U Cannabinoids Screen (NEGATIVE) Alcohol, Quantitative (0-10) mg/dl 11/29/18 11/28/18 11/28/18 Range/Units 01:35 22:40 22:20 WBC (4.8-10.8) K/uL RBC (3.80-5.20) Mil/uL Hgb (11.0-16.0) g/dL Hct (34.0-47.0) % MCV (81.0-99.0) fL MCH (27.0-31.0) pg MCHC (33.0-37.0) g/dL RDW (11.5-14.5) % Plt Count (130-400) K/uL MPV (7.2-11.7) fL Neut % (Auto) (50.0-75.0) % Lymph % (Auto) (20.0-40.0) % [place] % (Auto) (0.0-10.0) % Eos % (Auto) (0.0-4.0) % Baso % (Auto) (0.0-2.0) % Neut # (Auto) (1.8-7.0) K/uL Lymph # (Auto) (1.0-4.3) K/uL [place] # (Auto) (0.0-0.8) K/uL Eos # (Auto) (0.0-0.7) K/uL Baso # (Auto) (0.0-0.2) K/uL Neutrophils % (Manual) (50-75) % Lymphocytes % (Manual) (20-40) % Monocytes % (Manual) (0-10) % Platelet Estimate (NORMAL) Puncture Site Rradial Rb pCO2 49 H 35 (35-45) mm/Hg pO2 603 H 52 363 H (80-100) mm/Hg HCO3 20.9 L 19.7 L (21-28) mmol/L ABG pH 7.26 L 7.33 L (7.35-7.45) ABG Total CO2 23.5 19.6 L (22-28) mmol/L ABG O2 Saturation 100.2 H 99.6 H (95-98) % ABG Base Excess -5.3 L -6.7 L (-2.0-3.0) mmol/L ABG Hemoglobin 12.1 (11.7-17.4) g/dL ABG Carboxyhemoglobin 1.0 (0.5-1.5) % POC ABG HHb (Measured) 0.4 (0.0-5.0) % ABG Methemoglobin 0.7 (0.0-3.0) % Eddi Test Pos Na ABG Potassium 3.9 (3.6-5.2) mmol/L VBG pH 7.25 L (7.32-7.43) VBG pCO2 52 (40-60) mmHg VBG HCO3 20.6 mmol/L VBG Total CO2 24.4 (22-28) mmol/L VBG O2 Sat (Calc) 88.0 H (40-65) % VBG Base Excess -4.9 L (0.0-2.0) mmol/L VBG Potassium 4.0 (3.6-5.2) mmol/L A-a O2 Difference 49.0 306.0 mm/Hg Respiratory Index 0.1 0.8 Hgb O2 Saturation 97.9 (95.0-98.0) % Glucose 169 H 108 H (65-105) mg/dl Lactate 0.7 0.9 (0.7-2.1) mmol/L Liter Flow 12.0 FiO2 100.0 100.0 % Sodium 140.0 140.0 (132-148) mmol/L Potassium (3.6-5.2) mmol/L Chloride 113.0 H 108.0 H (98-107) mmol/L Carbon Dioxide (22-30) mmol/L Anion Gap (10-20) BUN (7-17) mg/dL Creatinine (0.7-1.2) mg/dL Est GFR ( Amer) Est GFR (Non-Af Amer) POC Glucose (mg/dL) (65-110) mg/dL Random Glucose (65-105) mg/dL Serum Osmolality (272-300) mosm/kg Calcium (8.6-10.4) mg/dl Phosphorus (2.5-4.5) mg/dL Magnesium (1.6-2.3) mg/dL Total Bilirubin (0.2-1.3) mg/dL AST (14-36) U/L ALT (9-52) U/L Alkaline Phosphatase (38-126) U/L Ammonia (9-33) umol/L Total Protein (6.3-8.3) g/dL Albumin (3.5-5.0) g/dL Globulin (2.2-3.9) gm/dL Albumin/Globulin Ratio (1.0-2.1) Arterial Blood Potassium 3.9 (3.6-5.2) mmol/L Venous Blood Potassium 4.0 (3.6-5.2) mmol/L Urine Color (YELLOW) Urine Clarity (Clear) Urine pH (5.0-8.0) Ur Specific [place] (1.003-1.030) Urine Protein (NEGATIVE) mg/dL Urine Glucose (UA) (Normal) mg/dL Urine Ketones (NEGATIVE) mg/dL Urine Blood (NEGATIVE) Urine Nitrate (NEGATIVE) Urine Bilirubin (NEGATIVE) Urine Urobilinogen (0.2-1.0) mg/dL Ur Leukocyte Esterase (Negative) Janis/uL Urine WBC (Auto) (0-5) /hpf Ur Squamous Epith Cells (0-5) /hpf Urine HCG, Qual (NEGATIVE) Salicylates mg/dL 1 Urine Opiates Screen (NEGATIVE) Urine Methadone Screen (NEGATIVE) Acetaminophen (10.0-30.0) ug/mL Ur Barbiturates Screen (NEGATIVE) Valproic Acid (50.0-100.0) ug/mL Ur Phencyclidine Scrn (NEGATIVE) Ur Amphetamines Screen (NEGATIVE) U Benzodiazepines Scrn (NEGATIVE) U Oth Cocaine Metabols (NEGATIVE) U Cannabinoids Screen (NEGATIVE) Alcohol, Quantitative (0-10) mg/dl 11/28/18 11/28/18 11/28/18 Range/Units 21:46 21:35 21:35 WBC (4.8-10.8) K/uL RBC (3.80-5.20) Mil/uL Hgb (11.0-16.0) g/dL Hct (34.0-47.0) % MCV (81.0-99.0) fL MCH (27.0-31.0) pg MCHC (33.0-37.0) g/dL RDW (11.5-14.5) % Plt Count (130-400) K/uL MPV (7.2-11.7) fL Neut % (Auto) (50.0-75.0) % Lymph % (Auto) (20.0-40.0) % [place] % (Auto) (0.0-10.0) % Eos % (Auto) (0.0-4.0) % Baso % (Auto) (0.0-2.0) % Neut # (Auto) (1.8-7.0) K/uL Lymph # (Auto) (1.0-4.3) K/uL [place] # (Auto) (0.0-0.8) K/uL Eos # (Auto) (0.0-0.7) K/uL Baso # (Auto) (0.0-0.2) K/uL Neutrophils % (Manual) (50-75) % Lymphocytes % (Manual) (20-40) % Monocytes % (Manual) (0-10) % Platelet Estimate (NORMAL) Puncture Site pCO2 (35-45) mm/Hg pO2 (80-100) mm/Hg HCO3 (21-28) mmol/L ABG pH (7.35-7.45) ABG Total CO2 (22-28) mmol/L ABG O2 Saturation (95-98) % ABG Base Excess (-2.0-3.0) mmol/L ABG Hemoglobin (11.7-17.4) g/dL ABG Carboxyhemoglobin (0.5-1.5) % POC ABG HHb (Measured) (0.0-5.0) % ABG Methemoglobin (0.0-3.0) % Eddi Test ABG Potassium (3.6-5.2) mmol/L VBG pH (7.32-7.43) VBG pCO2 (40-60) mmHg VBG HCO3 mmol/L VBG Total CO2 (22-28) mmol/L VBG O2 Sat (Calc) (40-65) % VBG Base Excess (0.0-2.0) mmol/L VBG Potassium (3.6-5.2) mmol/L A-a O2 Difference mm/Hg Respiratory Index Hgb O2 Saturation (95.0-98.0) % Glucose (65-105) mg/dl Lactate (0.7-2.1) mmol/L Liter Flow FiO2 % Sodium 140 (132-148) mmol/L Potassium 3.9 (3.6-5.2) mmol/L Chloride 108 H (98-107) mmol/L Carbon Dioxide 24 (22-30) mmol/L Anion Gap 12 (10-20) BUN 13 (7-17) mg/dL Creatinine 0.5 L (0.7-1.2) mg/dL Est GFR ( Amer) > 60 Est GFR (Non-Af Amer) > 60 POC Glucose (mg/dL) (65-110) mg/dL Random Glucose 108 H (65-105) mg/dL Serum Osmolality (272-300) mosm/kg Calcium 9.6 (8.6-10.4) mg/dl Phosphorus 3.4 (2.5-4.5) mg/dL Magnesium 2.3 (1.6-2.3) mg/dL Total Bilirubin 0.3 (0.2-1.3) mg/dL AST 35 (14-36) U/L ALT 10 (9-52) U/L Alkaline Phosphatase 65 (38-126) U/L Ammonia (9-33) umol/L Total Protein 7.6 (6.3-8.3) g/dL Albumin 4.6 (3.5-5.0) g/dL Globulin 3.1 (2.2-3.9) gm/dL Albumin/Globulin Ratio 1.5 (1.0-2.1) Arterial Blood Potassium (3.6-5.2) mmol/L Venous Blood Potassium (3.6-5.2) mmol/L Urine Color (YELLOW) Urine Clarity (Clear) Urine pH (5.0-8.0) Ur Specific [place] (1.003-1.030) Urine Protein (NEGATIVE) mg/dL Urine Glucose (UA) (Normal) mg/dL Urine Ketones (NEGATIVE) mg/dL Urine Blood (NEGATIVE) Urine Nitrate (NEGATIVE) Urine Bilirubin (NEGATIVE) Urine Urobilinogen (0.2-1.0) mg/dL Ur Leukocyte Esterase (Negative) Janis/uL Urine WBC (Auto) (0-5) /hpf Ur Squamous Epith Cells (0-5) /hpf Urine HCG, Qual (NEGATIVE) Salicylates < 1.0 mg/dL 1 Urine Opiates Screen Negative (NEGATIVE) Urine Methadone Screen Negative (NEGATIVE) Acetaminophen < 10.0 L (10.0-30.0) ug/mL Ur Barbiturates Screen Positive H (NEGATIVE) Valproic Acid (50.0-100.0) ug/mL Ur Phencyclidine Scrn Negative (NEGATIVE) Ur Amphetamines Screen Negative (NEGATIVE) U Benzodiazepines Scrn Negative (NEGATIVE) U Oth Cocaine Metabols Negative (NEGATIVE) U Cannabinoids Screen Positive H (NEGATIVE) Alcohol, Quantitative (0-10) mg/dl 11/28/18 11/28/18 11/28/18 Range/Units 21:35 21:35 21:30 WBC 11.2 H (4.8-10.8) K/uL RBC 4.85 (3.80-5.20) Mil/uL Hgb 13.8 (11.0-16.0) g/dL Hct 41.3 (34.0-47.0) % MCV 85.0 (81.0-99.0) fL MCH 28.4 (27.0-31.0) pg MCHC 33.5 (33.0-37.0) g/dL RDW 13.8 (11.5-14.5) % Plt Count 280 (130-400) K/uL MPV 8.5 (7.2-11.7) fL Neut % (Auto) 64.7 (50.0-75.0) % Lymph % (Auto) 26.7 (20.0-40.0) % [place] % (Auto) 6.6 (0.0-10.0) % Eos % (Auto) 1.6 (0.0-4.0) % Baso % (Auto) 0.4 (0.0-2.0) % Neut # (Auto) 7.3 H (1.8-7.0) K/uL Lymph # (Auto) 3.0 (1.0-4.3) K/uL [place] # (Auto) 0.7 (0.0-0.8) K/uL Eos # (Auto) 0.2 (0.0-0.7) K/uL Baso # (Auto) 0.0 (0.0-0.2) K/uL Neutrophils % (Manual) (50-75) % Lymphocytes % (Manual) (20-40) % Monocytes % (Manual) (0-10) % Platelet Estimate (NORMAL) Puncture Site pCO2 (35-45) mm/Hg pO2 (80-100) mm/Hg HCO3 (21-28) mmol/L ABG pH (7.35-7.45) ABG Total CO2 (22-28) mmol/L ABG O2 Saturation (95-98) % ABG Base Excess (-2.0-3.0) mmol/L ABG Hemoglobin (11.7-17.4) g/dL ABG Carboxyhemoglobin (0.5-1.5) % POC ABG HHb (Measured) (0.0-5.0) % ABG Methemoglobin (0.0-3.0) % Eddi Test ABG Potassium (3.6-5.2) mmol/L VBG pH (7.32-7.43) VBG pCO2 (40-60) mmHg VBG HCO3 mmol/L VBG Total CO2 (22-28) mmol/L VBG O2 Sat (Calc) (40-65) % VBG Base Excess (0.0-2.0) mmol/L VBG Potassium (3.6-5.2) mmol/L A-a O2 Difference mm/Hg Respiratory Index Hgb O2 Saturation (95.0-98.0) % Glucose (65-105) mg/dl Lactate (0.7-2.1) mmol/L Liter Flow FiO2 % Sodium (132-148) mmol/L Potassium (3.6-5.2) mmol/L Chloride (98-107) mmol/L Carbon Dioxide (22-30) mmol/L Anion Gap (10-20) BUN (7-17) mg/dL Creatinine (0.7-1.2) mg/dL Est GFR ( Amer) Est GFR (Non-Af Amer) POC Glucose (mg/dL) (65-110) mg/dL Random Glucose (65-105) mg/dL Serum Osmolality (272-300) mosm/kg Calcium (8.6-10.4) mg/dl Phosphorus (2.5-4.5) mg/dL Magnesium (1.6-2.3) mg/dL Total Bilirubin (0.2-1.3) mg/dL AST (14-36) U/L ALT (9-52) U/L Alkaline Phosphatase (38-126) U/L Ammonia (9-33) umol/L Total Protein (6.3-8.3) g/dL Albumin (3.5-5.0) g/dL Globulin (2.2-3.9) gm/dL Albumin/Globulin Ratio (1.0-2.1) Arterial Blood Potassium (3.6-5.2) mmol/L Venous Blood Potassium (3.6-5.2) mmol/L Urine Color Colorless (YELLOW) Urine Clarity Clear (Clear) Urine pH 6.0 (5.0-8.0) Ur Specific [place] 1.004 (1.003-1.030) Urine Protein Negative (NEGATIVE) mg/dL Urine Glucose (UA) Normal (Normal) mg/dL Urine Ketones Negative (NEGATIVE) mg/dL Urine Blood Negative (NEGATIVE) Urine Nitrate Negative (NEGATIVE) Urine Bilirubin Negative (NEGATIVE) Urine Urobilinogen Normal (0.2-1.0) mg/dL Ur Leukocyte Esterase Neg (Negative) Janis/uL Urine WBC (Auto) < 1 (0-5) /hpf Ur Squamous Epith Cells 1 (0-5) /hpf Urine HCG, Qual Negative (NEGATIVE) Salicylates mg/dL 1 Urine Opiates Screen (NEGATIVE) Urine Methadone Screen (NEGATIVE) Acetaminophen (10.0-30.0) ug/mL Ur Barbiturates Screen (NEGATIVE) Valproic Acid (50.0-100.0) ug/mL Ur Phencyclidine Scrn (NEGATIVE) Ur Amphetamines Screen (NEGATIVE) U Benzodiazepines Scrn (NEGATIVE) U Oth Cocaine Metabols (NEGATIVE) U Cannabinoids Screen (NEGATIVE) Alcohol, Quantitative < 10 (0-10) mg/dl 11/28/18 Range/Units 21:25 WBC (4.8-10.8) K/uL RBC (3.80-5.20) Mil/uL Hgb (11.0-16.0) g/dL Hct (34.0-47.0) % MCV (81.0-99.0) fL MCH (27.0-31.0) pg MCHC (33.0-37.0) g/dL RDW (11.5-14.5) % Plt Count (130-400) K/uL MPV (7.2-11.7) fL Neut % (Auto) (50.0-75.0) % Lymph % (Auto) (20.0-40.0) % [place] % (Auto) (0.0-10.0) % Eos % (Auto) (0.0-4.0) % Baso % (Auto) (0.0-2.0) % Neut # (Auto) (1.8-7.0) K/uL Lymph # (Auto) (1.0-4.3) K/uL [place] # (Auto) (0.0-0.8) K/uL Eos # (Auto) (0.0-0.7) K/uL Baso # (Auto) (0.0-0.2) K/uL Neutrophils % (Manual) (50-75) % Lymphocytes % (Manual) (20-40) % Monocytes % (Manual) (0-10) % Platelet Estimate (NORMAL) Puncture Site pCO2 (35-45) mm/Hg pO2 (80-100) mm/Hg HCO3 (21-28) mmol/L ABG pH (7.35-7.45) ABG Total CO2 (22-28) mmol/L ABG O2 Saturation (95-98) % ABG Base Excess (-2.0-3.0) mmol/L ABG Hemoglobin (11.7-17.4) g/dL ABG Carboxyhemoglobin (0.5-1.5) % POC ABG HHb (Measured) (0.0-5.0) % ABG Methemoglobin (0.0-3.0) % Eddi Test ABG Potassium (3.6-5.2) mmol/L VBG pH (7.32-7.43) VBG pCO2 (40-60) mmHg VBG HCO3 mmol/L VBG Total CO2 (22-28) mmol/L VBG O2 Sat (Calc) (40-65) % VBG Base Excess (0.0-2.0) mmol/L VBG Potassium (3.6-5.2) mmol/L A-a O2 Difference mm/Hg Respiratory Index Hgb O2 Saturation (95.0-98.0) % Glucose (65-105) mg/dl Lactate (0.7-2.1) mmol/L Liter Flow FiO2 % Sodium (132-148) mmol/L Potassium (3.6-5.2) mmol/L Chloride (98-107) mmol/L Carbon Dioxide (22-30) mmol/L Anion Gap (10-20) BUN (7-17) mg/dL Creatinine (0.7-1.2) mg/dL Est GFR ( Amer) Est GFR (Non-Af Amer) POC Glucose (mg/dL) 102 (65-110) mg/dL Random Glucose (65-105) mg/dL Serum Osmolality (272-300) mosm/kg Calcium (8.6-10.4) mg/dl Phosphorus (2.5-4.5) mg/dL Magnesium (1.6-2.3) mg/dL Total Bilirubin (0.2-1.3) mg/dL AST (14-36) U/L ALT (9-52) U/L Alkaline Phosphatase (38-126) U/L Ammonia (9-33) umol/L Total Protein (6.3-8.3) g/dL Albumin (3.5-5.0) g/dL Globulin (2.2-3.9) gm/dL Albumin/Globulin Ratio (1.0-2.1) Arterial Blood Potassium (3.6-5.2) mmol/L Venous Blood Potassium (3.6-5.2) mmol/L Urine Color (YELLOW) Urine Clarity (Clear) Urine pH (5.0-8.0) Ur Specific [place] (1.003-1.030) Urine Protein (NEGATIVE) mg/dL Urine Glucose (UA) (Normal) mg/dL Urine Ketones (NEGATIVE) mg/dL Urine Blood (NEGATIVE) Urine Nitrate (NEGATIVE) Urine Bilirubin (NEGATIVE) Urine Urobilinogen (0.2-1.0) mg/dL Ur Leukocyte Esterase (Negative) Janis/uL Urine WBC (Auto) (0-5) /hpf Ur Squamous Epith Cells (0-5) /hpf Urine HCG, Qual (NEGATIVE) Salicylates mg/dL 1 Urine Opiates Screen (NEGATIVE) Urine Methadone Screen (NEGATIVE) Acetaminophen (10.0-30.0) ug/mL Ur Barbiturates Screen (NEGATIVE) Valproic Acid (50.0-100.0) ug/mL Ur Phencyclidine Scrn (NEGATIVE) Ur Amphetamines Screen (NEGATIVE) U Benzodiazepines Scrn (NEGATIVE) U Oth Cocaine Metabols (NEGATIVE) U Cannabinoids Screen (NEGATIVE) Alcohol, Quantitative (0-10) mg/dl Laboratory Results - last 24 hr 11/28/18 11/28/18 11/28/18 21:25 21:30 21:35 WBC 11.2 H RBC 4.85 Hgb 13.8 Hct 41.3 MCV 85.0 MCH 28.4 MCHC 33.5 RDW 13.8 Plt Count 280 MPV 8.5 Neut % (Auto) 64.7 Lymph % (Auto) 26.7 [place] % (Auto) 6.6 Eos % (Auto) 1.6 Baso % (Auto) 0.4 Neut # (Auto) 7.3 H Lymph # (Auto) 3.0 [place] # (Auto) 0.7 Eos # (Auto) 0.2 Baso # (Auto) 0.0 Neutrophils % (Manual) Lymphocytes % (Manual) Monocytes % (Manual) Platelet Estimate Puncture Site pCO2 pO2 HCO3 ABG pH ABG Total CO2 ABG O2 Saturation ABG Base Excess ABG Hemoglobin ABG Carboxyhemoglobin POC ABG HHb (Measured) ABG Methemoglobin Eddi Test ABG Potassium VBG pH VBG pCO2 VBG HCO3 VBG Total CO2 VBG O2 Sat (Calc) VBG Base Excess VBG Potassium A-a O2 Difference Respiratory Index Hgb O2 Saturation Glucose Lactate Liter Flow FiO2 Sodium Potassium Chloride Carbon Dioxide Anion Gap BUN Creatinine Est GFR ( Amer) Est GFR (Non-Af Amer) POC Glucose (mg/dL) 102 Random Glucose Serum Osmolality Calcium Phosphorus Magnesium Total Bilirubin AST ALT Alkaline Phosphatase Ammonia Total Protein Albumin Globulin Albumin/Globulin Ratio Arterial Blood Potassium Venous Blood Potassium Urine Color Urine Clarity Urine pH Ur Specific [place] Urine Protein Urine Glucose (UA) Urine Ketones Urine Blood Urine Nitrate Urine Bilirubin Urine Urobilinogen Ur Leukocyte Esterase Urine WBC (Auto) Ur Squamous Epith Cells Urine HCG, Qual Salicylates Urine Opiates Screen Urine Methadone Screen Acetaminophen Ur Barbiturates Screen Valproic Acid Ur Phencyclidine Scrn Ur Amphetamines Screen U Benzodiazepines Scrn U Oth Cocaine Metabols U Cannabinoids Screen Alcohol, Quantitative < 10 11/28/18 11/28/18 11/28/18 21:35 21:35 21:35 WBC RBC Hgb Hct MCV MCH MCHC RDW Plt Count MPV Neut % (Auto) Lymph % (Auto) [place] % (Auto) Eos % (Auto) Baso % (Auto) Neut # (Auto) Lymph # (Auto) [place] # (Auto) Eos # (Auto) Baso # (Auto) Neutrophils % (Manual) Lymphocytes % (Manual) Monocytes % (Manual) Platelet Estimate Puncture Site pCO2 pO2 HCO3 ABG pH ABG Total CO2 ABG O2 Saturation ABG Base Excess ABG Hemoglobin ABG Carboxyhemoglobin POC ABG HHb (Measured) ABG Methemoglobin Eddi Test ABG Potassium VBG pH VBG pCO2 VBG HCO3 VBG Total CO2 VBG O2 Sat (Calc) VBG Base Excess VBG Potassium A-a O2 Difference Respiratory Index Hgb O2 Saturation Glucose Lactate Liter Flow FiO2 Sodium 140 Potassium 3.9 Chloride 108 H Carbon Dioxide 24 Anion Gap 12 BUN 13 Creatinine 0.5 L Est GFR ( Amer) > 60 Est GFR (Non-Af Amer) > 60 POC Glucose (mg/dL) Random Glucose 108 H Serum Osmolality Calcium 9.6 Phosphorus 3.4 Magnesium 2.3 Total Bilirubin 0.3 AST 35 ALT 10 Alkaline Phosphatase 65 Ammonia Total Protein 7.6 Albumin 4.6 Globulin 3.1 Albumin/Globulin Ratio 1.5 Arterial Blood Potassium Venous Blood Potassium Urine Color Colorless Urine Clarity Clear Urine pH 6.0 Ur Specific [place] 1.004 Urine Protein Negative Urine Glucose (UA) Normal Urine Ketones Negative Urine Blood Negative Urine Nitrate Negative Urine Bilirubin Negative Urine Urobilinogen Normal Ur Leukocyte Esterase Neg Urine WBC (Auto) < 1 Ur Squamous Epith Cells 1 Urine HCG, Qual Negative Salicylates Urine Opiates Screen Negative Urine Methadone Screen Negative Acetaminophen Ur Barbiturates Screen Positive H Valproic Acid Ur Phencyclidine Scrn Negative Ur Amphetamines Screen Negative U Benzodiazepines Scrn Negative U Oth Cocaine Metabols Negative U Cannabinoids Screen Positive H Alcohol, Quantitative 11/28/18 11/28/18 11/28/18 21:46 22:20 22:40 WBC RBC Hgb Hct MCV MCH MCHC RDW Plt Count MPV Neut % (Auto) Lymph % (Auto) [place] % (Auto) Eos % (Auto) Baso % (Auto) Neut # (Auto) Lymph # (Auto) [place] # (Auto) Eos # (Auto) Baso # (Auto) Neutrophils % (Manual) Lymphocytes % (Manual) Monocytes % (Manual) Platelet Estimate Puncture Site Rb pCO2 35 pO2 363 H 52 HCO3 19.7 L ABG pH 7.33 L ABG Total CO2 19.6 L ABG O2 Saturation 99.6 H ABG Base Excess -6.7 L ABG Hemoglobin 12.1 ABG Carboxyhemoglobin 1.0 POC ABG HHb (Measured) 0.4 ABG Methemoglobin 0.7 Eddi Test Na ABG Potassium VBG pH 7.25 L VBG pCO2 52 VBG HCO3 20.6 VBG Total CO2 24.4 VBG O2 Sat (Calc) 88.0 H VBG Base Excess -4.9 L VBG Potassium 4.0 A-a O2 Difference 306.0 Respiratory Index 0.8 Hgb O2 Saturation 97.9 Glucose 108 H Lactate 0.9 Liter Flow FiO2 100.0 Sodium 140.0 Potassium Chloride 108.0 H Carbon Dioxide Anion Gap BUN Creatinine Est GFR ( Amer) Est GFR (Non-Af Amer) POC Glucose (mg/dL) Random Glucose Serum Osmolality Calcium Phosphorus Magnesium Total Bilirubin AST ALT Alkaline Phosphatase Ammonia Total Protein Albumin Globulin Albumin/Globulin Ratio Arterial Blood Potassium Venous Blood Potassium 4.0 Urine Color Urine Clarity Urine pH Ur Specific [place] Urine Protein Urine Glucose (UA) Urine Ketones Urine Blood Urine Nitrate Urine Bilirubin Urine Urobilinogen Ur Leukocyte Esterase Urine WBC (Auto) Ur Squamous Epith Cells Urine HCG, Qual Salicylates < 1.0 Urine Opiates Screen Urine Methadone Screen Acetaminophen < 10.0 L Ur Barbiturates Screen Valproic Acid Ur Phencyclidine Scrn Ur Amphetamines Screen U Benzodiazepines Scrn U Oth Cocaine Metabols U Cannabinoids Screen Alcohol, Quantitative 11/29/18 11/29/18 11/29/18 01:35 01:49 06:14 WBC RBC Hgb Hct MCV MCH MCHC RDW Plt Count MPV Neut % (Auto) Lymph % (Auto) [place] % (Auto) Eos % (Auto) Baso % (Auto) Neut # (Auto) Lymph # (Auto) [place] # (Auto) Eos # (Auto) Baso # (Auto) Neutrophils % (Manual) Lymphocytes % (Manual) Monocytes % (Manual) Platelet Estimate Puncture Site Rradial pCO2 49 H pO2 603 H HCO3 20.9 L ABG pH 7.26 L ABG Total CO2 23.5 ABG O2 Saturation 100.2 H ABG Base Excess -5.3 L ABG Hemoglobin ABG Carboxyhemoglobin POC ABG HHb (Measured) ABG Methemoglobin Eddi Test Pos ABG Potassium 3.9 VBG pH VBG pCO2 VBG HCO3 VBG Total CO2 VBG O2 Sat (Calc) VBG Base Excess VBG Potassium A-a O2 Difference 49.0 Respiratory Index 0.1 Hgb O2 Saturation Glucose 169 H Lactate 0.7 Liter Flow 12.0 FiO2 100.0 Sodium 140.0 142 Potassium 4.5 Chloride 113.0 H 114 H Carbon Dioxide 21 L Anion Gap 11 BUN 8 Creatinine 0.4 L Est GFR ( Amer) > 60 Est GFR (Non-Af Amer) > 60 POC Glucose (mg/dL) Random Glucose 155 H D Serum Osmolality Calcium 8.2 L Phosphorus Magnesium Total Bilirubin 0.4 AST 24 ALT 16 Alkaline Phosphatase 56 Ammonia Total Protein 6.7 Albumin 3.8 Globulin 2.9 Albumin/Globulin Ratio 1.3 Arterial Blood Potassium 3.9 Venous Blood Potassium Urine Color Urine Clarity Urine pH Ur Specific [place] Urine Protein Urine Glucose (UA) Urine Ketones Urine Blood Urine Nitrate Urine Bilirubin Urine Urobilinogen Ur Leukocyte Esterase Urine WBC (Auto) Ur Squamous Epith Cells Urine HCG, Qual Salicylates Urine Opiates Screen Urine Methadone Screen Acetaminophen < 10.0 L Ur Barbiturates Screen Valproic Acid Ur Phencyclidine Scrn Ur Amphetamines Screen U Benzodiazepines Scrn U Oth Cocaine Metabols U Cannabinoids Screen Alcohol, Quantitative 11/29/18 11/29/18 11/29/18 06:14 06:14 06:15 WBC 12.0 H RBC 4.69 Hgb 13.9 Hct 41.4 MCV 88.1 D MCH 29.7 MCHC 33.7 RDW 14.1 Plt Count 262 MPV 9.5 Neut % (Auto) 88.1 H Lymph % (Auto) 7.4 L [place] % (Auto) 4.3 Eos % (Auto) 0.1 Baso % (Auto) 0.1 Neut # (Auto) 10.6 H Lymph # (Auto) 0.9 L [place] # (Auto) 0.5 Eos # (Auto) 0.0 Baso # (Auto) 0.0 Neutrophils % (Manual) 86 H Lymphocytes % (Manual) 9 L Monocytes % (Manual) 5 Platelet Estimate Normal Puncture Site pCO2 pO2 HCO3 ABG pH ABG Total CO2 ABG O2 Saturation ABG Base Excess ABG Hemoglobin ABG Carboxyhemoglobin POC ABG HHb (Measured) ABG Methemoglobin Eddi Test ABG Potassium VBG pH VBG pCO2 VBG HCO3 VBG Total CO2 VBG O2 Sat (Calc) VBG Base Excess VBG Potassium A-a O2 Difference Respiratory Index Hgb O2 Saturation Glucose Lactate Liter Flow FiO2 Sodium Potassium Chloride Carbon Dioxide Anion Gap BUN Creatinine Est GFR ( Amer) Est GFR (Non-Af Amer) POC Glucose (mg/dL) Random Glucose Serum Osmolality Calcium Phosphorus Magnesium Total Bilirubin AST ALT Alkaline Phosphatase Ammonia 34 H Total Protein Albumin Globulin Albumin/Globulin Ratio Arterial Blood Potassium Venous Blood Potassium Urine Color Urine Clarity Urine pH Ur Specific [place] Urine Protein Urine Glucose (UA) Urine Ketones Urine Blood Urine Nitrate Urine Bilirubin Urine Urobilinogen Ur Leukocyte Esterase Urine WBC (Auto) Ur Squamous Epith Cells Urine HCG, Qual Salicylates Urine Opiates Screen Urine Methadone Screen Acetaminophen Ur Barbiturates Screen Valproic Acid < 10.0 L Ur Phencyclidine Scrn Ur Amphetamines Screen U Benzodiazepines Scrn U Oth Cocaine Metabols U Cannabinoids Screen Alcohol, Quantitative 11/29/18 11/29/18 11/29/18 06:40 08:08 08:08 WBC RBC Hgb Hct MCV MCH MCHC RDW Plt Count MPV Neut % (Auto) Lymph % (Auto) [place] % (Auto) Eos % (Auto) Baso % (Auto) Neut # (Auto) Lymph # (Auto) [place] # (Auto) Eos # (Auto) Baso # (Auto) Neutrophils % (Manual) Lymphocytes % (Manual) Monocytes % (Manual) Platelet Estimate Puncture Site Rradial pCO2 43 pO2 157 H HCO3 20.5 L ABG pH 7.29 L ABG Total CO2 22.0 ABG O2 Saturation 99.2 H ABG Base Excess -5.7 L ABG Hemoglobin 12.8 ABG Carboxyhemoglobin 0.8 POC ABG HHb (Measured) 0.8 ABG Methemoglobin 0.4 Eddi Test Pos ABG Potassium VBG pH VBG pCO2 VBG HCO3 VBG Total CO2 VBG O2 Sat (Calc) VBG Base Excess VBG Potassium A-a O2 Difference -11.0 Respiratory Index -0.1 Hgb O2 Saturation 97.9 Glucose Lactate Liter Flow 2.0 FiO2 28.0 Sodium Potassium Chloride Carbon Dioxide Anion Gap BUN Creatinine Est GFR ( Amer) Est GFR (Non-Af Amer) POC Glucose (mg/dL) Random Glucose Serum Osmolality 301 H Calcium Phosphorus Magnesium Total Bilirubin AST ALT Alkaline Phosphatase Ammonia Total Protein Albumin Globulin Albumin/Globulin Ratio Arterial Blood Potassium Venous Blood Potassium Urine Color Urine Clarity Urine pH Ur Specific [place] Urine Protein Urine Glucose (UA) Urine Ketones Urine Blood Urine Nitrate Urine Bilirubin Urine Urobilinogen Ur Leukocyte Esterase Urine WBC (Auto) Ur Squamous Epith Cells Urine HCG, Qual Salicylates Urine Opiates Screen Urine Methadone Screen Acetaminophen Ur Barbiturates Screen Valproic Acid < 10.0 L Ur Phencyclidine Scrn Ur Amphetamines Screen U Benzodiazepines Scrn U Oth Cocaine Metabols U Cannabinoids Screen Alcohol, Quantitative 11/29/18 10:48 WBC RBC Hgb Hct MCV MCH MCHC RDW Plt Count MPV Neut % (Auto) Lymph % (Auto) [place] % (Auto) Eos % (Auto) Baso % (Auto) Neut # (Auto) Lymph # (Auto) [place] # (Auto) Eos # (Auto) Baso # (Auto) Neutrophils % (Manual) Lymphocytes % (Manual) Monocytes % (Manual) Platelet Estimate Puncture Site Rra pCO2 28 L pO2 154 H HCO3 22.8 ABG pH 7.46 H ABG Total CO2 20.8 L ABG O2 Saturation 99.3 H ABG Base Excess -2.7 L ABG Hemoglobin 13.0 ABG Carboxyhemoglobin 0.9 POC ABG HHb (Measured) 0.7 ABG Methemoglobin 0.9 Eddi Test Po ABG Potassium VBG pH VBG pCO2 VBG HCO3 VBG Total CO2 VBG O2 Sat (Calc) VBG Base Excess VBG Potassium A-a O2 Difference 11.0 Respiratory Index 0.1 Hgb O2 Saturation 97.4 Glucose Lactate Liter Flow 2.0 FiO2 28.0 Sodium Potassium Chloride Carbon Dioxide Anion Gap BUN Creatinine Est GFR ( Amer) Est GFR (Non-Af Amer) POC Glucose (mg/dL) Random Glucose Serum Osmolality Calcium Phosphorus Magnesium Total Bilirubin AST ALT Alkaline Phosphatase Ammonia Total Protein Albumin Globulin Albumin/Globulin Ratio Arterial Blood Potassium Venous Blood Potassium Urine Color Urine Clarity Urine pH Ur Specific [place] Urine Protein Urine Glucose (UA) Urine Ketones Urine Blood Urine Nitrate Urine Bilirubin Urine Urobilinogen Ur Leukocyte Esterase Urine WBC (Auto) Ur Squamous Epith Cells Urine HCG, Qual Salicylates Urine Opiates Screen Urine Methadone Screen Acetaminophen Ur Barbiturates Screen Valproic Acid Ur Phencyclidine Scrn Ur Amphetamines Screen U Benzodiazepines Scrn U Oth Cocaine Metabols U Cannabinoids Screen Alcohol, Quantitative Radiology Impressions: Radiology Impressions Chest X-Ray 11/28/18 21:40 IMPRESSION: No acute cardiopulmonary disease appreciated. Head CT 11/28/18 21:40 IMPRESSION: No acute intracranial abnormality. If symptoms persists, consider correlation with MRI. A preliminary report was generated at 10:18 p.m. on 11/28/[address] Modesto Portillo from [facility]. EKG/Cardiology Studies: Cardiology / EKG Studies 11/28/18 21:40 ELECTROCARDIOGRAM Stat Comment: Mode Of Transportation: BED Reason For Exam: seizure Review of Systems - Review of Systems All systems: reviewed and no additional remarkable complaints except Critical Care Progress Note - Nutrition Nutrition: Nutrition Category Date Time Status NPO Diet [DIET] Diets 11/29/18 Breakfast Active Assessment/Plan - Assessment and Plan (Free Text) Assessment: CV -Hemodynamically stable Neuro Altered Mental Status -UDS + positive for barbituates and cannabinoids -Patient more awake this afternoon and following commands, responding to name -Not Fioricet OD as tylenol level would be increasingly eleveated -Patient's mother mentioned that patient could potentially have gained access to her Baclofen -Patient without response to Narcan given in ED, fluids given - bedside EEG - f/u official read -CT head - no acute intracranial abnormality -CXR - Negative for acute disease -Neurology consulted, Dr. Ortega --Recommending psych consult for anxiety Pulm -Breathing spontaneously on room air -Patient did become tachypneic earlier, appears possibly related to anxiety -Mild respiratory alkalosis 2/2 hyperventilation Endo -No active endocrine problems GI -No active issues -No active issues ID -Afebrile, no white count Heme -HgB stable -Monitor H and H PPx - DVT: Heparin 5000u SC q8, SCDs - IVF: D5NS@150 - f/u MRSA screen Assessment and plan d/w Dr. Jed Felipe, PGY-1
--- NOTE | 2018-11-29 18:18 | CARD ---
APPROVED REPORT Date of service: 11/28/2018 EKG Measurement Heart [id number] <Conclusion> Sinus bradycardia Otherwise normal ECG
--- NOTE | 2018-11-29 19:24 | CON ---
DATE: 11/29/2018 NEUROLOGY CONSULT Neurology consult called by Dr. Enriqueta Erickson DO. HISTORY OF PRESENT ILLNESS: Ms. Marcela Henley is a 23-year-old woman who presents to the ER via EMS yesterday evening at 2200, she was found unresponsive prior to her arrival. The patient went to the room earlier in the evening, did not come in to found she was lying in her bed they were unable to wake her. EMS was called, she arrived normal limits. O2 saturation 97% on room air. She was responding to painful stimuli in the ER on arrival. She was given Narcan with no response. The patient said that she takes baclofen is not known. There were no seizure activities noticed last night or this morning. This morning however, ICU staff noted that the patient that her waxing and waning. There are no known prior event, history of seizures and history of recent trauma. No history of recent concussion. PAST MEDICAL HISTORY: As above. PAST SURGICAL HISTORY: As above. ALLERGIES: NO KNOWN DRUG ALLERGIES. SOCIAL HISTORY AND FAMILY HISTORY: No tobacco. No alcohol. The patient lives with her parents. PHYSICAL EXAMINATION: VITAL SIGNS: Temperature 96.2, 67 pulse, respiratory rate 20, blood pressure , pulse ox 99%. GENERAL: On exam, the patient had nasal oxygen on room air, was sitting very uncomfortably in bed. She was hypoventilating, however, the patient was alert, awake, oriented x3. HEENT: Pupils equal, round and reactive to light. NEUROLOGIC: Cranial nerves II to XII were normal. EOMI. Speech was fluent, she could name and repeat. She had good right and left differentiation. Motor is 5/5. Sensory intact to fine touch and pin. There was no drift. The patient did not walk. However, reflexes are +2 in upper and lower limbs bilaterally. She was able to differentiate proverb. LABORATORY DATA: Of note urine hCG was negative. Her labs are normal as well. CAT scan of the head was normal. IMPRESSION: This is a 23-year-old woman with most likely non epileptic events and profound anxiety, etiology unknown PLAN: 1. Electroencephalogram, 2. Psychiatric consult. Thank you for this interesting consult. David Ortega MD [facility] # [id number]
[2018-11-30] MEDS: Dextrose 5%/0.9% NS 1,000 ML IV SCH ×2 (02:34→09:35)
[2018-11-30 05:59] LABS: BASO % 0.3 % (0.0-2.0); EOS % 0.3 % (0.0-4.0); LYMPH # 3.3 K/uL (1.0-4.3); LYMPH % 30.3 % (20.0-40.0); MEAN CELL VOLUME 87.5 fL (81.0-99.0); MEAN CORPUSCULAR HEMOGLOBIN 29.6 pg (27.0-31.0); MEAN CORPUSCULAR HGB CONC 33.8 g/dL (33.0-37.0); MEAN PLATELET VOLUME 9.6 fL (7.2-11.7); MONO # 0.6 K/uL (0.0-0.8); NEUT # 6.8 K/uL (1.8-7.0); NEUT % 63.1 % (50.0-75.0); NRBC % 0.1 % (0.0-2.0); RBC 4.04 Mil/uL (3.80-5.20); WHITE BLOOD COUNT 10.8 K/uL (4.8-10.8)
[2018-11-30 06:23] LABS: ALB/GLOB RATIO 1.3 (1.0-2.1); ALBUMIN 3.3 g/dL (3.5-5.0); ALT/SGPT < 6 U/L (9-52); AST/SGOT 23 U/L (14-36); BLOOD UREA NITROGEN 2 mg/dL (7-17); CALCIUM 8.1 mg/dl (8.6-10.4); GFR NON-AFRICAN AMERICAN > 60
[2018-11-30] MEDS ORDERED: Potassium Chloride 20 mEq ER Tab PO ONE ×3 (07:30→13:52)
[2018-11-30] MEDS ORDERED: Potassium Phosphate 15 MMOLE in Sodium Chloride 0.9% 250 ML IV ONE (09:21)
--- NOTE | 2018-11-30 09:43 | CP.PCM.PN ---
Subjective - Date & Time of Evaluation Date of Evaluation: 11/30/18 Time of Evaluation: 08:20 - Subjective Subjective: Latoya Carvalho DO, PGY-2: Neurology Progress Note for Dr. Ortega Patient was seen and examined at bedside. She is alert and oriented to person place and time. She reports having nausea today. She denies headache, fever, chills, fever, or seizure like activity. Nurse reports no adverse events overnight. Objective - Vital Signs/Intake and Output Vital Signs (last 24 hours): Temp Pulse Resp BP Pulse Ox 98.1 F 74 11 L 114/54 L 100 11/30/18 08:00 11/30/18 09:15 11/30/18 09:15 11/30/18 08:49 11/30/18 09:15 Intake and Output: 11/30/18 11/30/18 06:59 18:59 Intake Total 1950 200 Output Total 1130 Balance 820 200 - Medications Medications: Current Medications Heparin Sodium (Porcine) (Heparin) 5,000 units SC Q8 RACHEL Last Admin: 11/30/18 05:06 Dose: 5,000 units Potassium Phosphate 15 mmole/ (Sodium Chloride) 255 mls @ 63 mls/hr IV ONCE ONE Stop: 11/30/18 13:19 Ondansetron HCl (Zofran Inj) 4 mg IVP Q6H PRN PRN Reason: Nausea/Vomiting Last Admin: 11/29/18 03:16 Dose: 4 mg - Labs Labs: 11/30/18 05:52 11/30/18 05:52 - Constitutional Appears: Well, Non-toxic - Head Exam Head Exam: ATRAUMATIC, NORMOCEPHALIC - Eye Exam Eye Exam: EOMI, Normal appearance - ENT Exam ENT Exam: Mucous Membranes Moist - Neck Exam Neck Exam: Normal Inspection - Respiratory Exam Respiratory Exam: NORMAL BREATHING PATTERN. absent: Accessory Muscle Use - Cardiovascular Exam Cardiovascular Exam: RRR. absent: Tachycardia - Extremities Exam Extremities Exam: Normal Inspection. absent: Calf Tenderness - Neurological Exam Neurological Exam: Alert, Awake, CN II-XII Intact, Oriented x3 Neuro motor strength exam: Left Upper Extremity: 5, Right Upper Extremity: 5, Left Lower Extremity: 5, Right Lower Extremity: 5 - Psychiatric Exam Psychiatric exam: Normal Affect, Normal Mood - Skin Skin Exam: Dry, Intact, Normal Color, Warm Assessment and Plan - Assessment and Plan (Free Text) Assessment: 23 year old female with a past medical history of migraine who presented to [facility] for altered mental status in the setting of having severe low back pain and taking her mothers baclofen. Plan: 1) R/O underlying seizure - CT head negative - Video EEG showed no abnormalities - Recommend close psychiatric follow up Case was reviewed and discussed with attending physician, Dr. Ortega
--- NOTE | 2018-11-30 09:56 | PCM.PSYCH ---
Initial Psychiatric Evaluation - Initial Psychiatric Evaluation Type of Admission: Voluntary Legal Status: Capacity Chief Complaint (in patient's own words): My migraines are bothering me.' History of Present Illness and Precipitating Events: Pt is 23 y/o single female that lives at home with mother, father, and siblings. She is a college student currently studying psychology. Psych was consulted for a suspected overdose. Pt states that she has a 10 year history of migraines. She has been taking ibuprofen and naproxen for her migraines but states that her symptoms were not improved with the medications. States that she took her mother s muscle relaxers to help with the migraines. States that she took 3 pills (baclofen) and then went to lay down. Her mother found her unarousable and called the ambulance. States that her mother flushed the bottle of pill down the toilet. Reports that her head felt heavy yesterday and states that she was afraid to go to sleep out of fear that she wouldn't wake up. She states that "i was not trying to kill my self. I just wanted some pain relief." Pt is in night school and states that it has been going well. Reports some disturbed sleep, but states that its her baseline. Pt reports a 10 pound weight loss, but denies changes in appetite. States that for the last year she has had trouble concentrating and has become more forgetful. Reports seeing and hearing family members that were not actually there yesterday. States that they were asking her "are you okay" . She reports racing thoughts, increased activity at times irritability and agitation, and sometimes panic attacks. However she denies suicidal and homicidal ideations. Pt denies illicit drug use. UDS was positive for barbiturates and cannabis. States that she has not taken any medications for migraines in a year. Past psych Hx: Denies Medications: Ibuprofen History of violence to self: Denies History of Violence to others: Denies Previous Psych Hospitalization: Denies Substance Use: Denies Trauma History: Denies Current Medications: Active Medications Generic Name Dose Route Start Last Admin Trade Name Freq PRN Reason Stop Dose Admin Heparin Sodium (Porcine) 5,000 units 11/28/18 23:30 11/30/18 05:06 Heparin SC 5,000 units Q8 RACHEL Administration Potassium Phosphate 15 mmole/ 255 mls @ 63 mls/hr 11/30/18 09:21 Sodium Chloride IV 11/30/18 13:19 ONCE ONE Ondansetron HCl 4 mg 11/29/18 02:00 11/29/18 03:16 Zofran Inj IVP 4 mg Q6H PRN Administration Nausea/Vomiting Past Psychiatric History - Past Psychiatric History Previous Treatment History: None Pertinent Medical Hx (Current Medical&Sleep Prob, Allergies): Allergies Allergy/AdvReac Type Severity Reaction Status Date / Time No Known Allergies Allergy Verified 11/28/18 21:27 Acetaminophen/Butalbital/Caf [Fioricet] 1 tab PO TID PRN 11/30/18 Review of Systems - Review of Systems All systems: reviewed and no additional remarkable complaints except - Psychiatric Psychiatric: Anxiety. absent: Suicidal Ideation Mental Status Examination - Personal Presentation Personal Presentation: Looks stated age - Affect Affect: Constricted - Motor Activity Motor Activity: Calm - Reliability in Providing Information Reliability in Providing Information: Fair - Speech Speech: Organized - Mood Mood: Anxious - Formal Thought Process Formal Thought Process: No Impairment - Obsessions/Compulsions Obsessions: No Compulsions: No - Cognitive Functions Orientation: Person, Place, Situation, Time Sensorium: Alert Attention/Concentration: Attentive Abstract Thinking: [place] Estimate of Intelligence: Below average Judgement: Imparied, as evidence by: Poor judgement, Intact, as evidence by: Insight regarding need for hospitalization - Risk Risk: Diminished functioning - Strength & Assets Inventory Strength & Assets Inventory: Family support DSM 5 DX - DSM 5 DSM 5 Diagnosis: Mood disorder NOS - Recommended/Plan of Treatment Treatment Recommendations and Plan of Treatment: Patient psychiatrically stable and cleared for discharge
--- NOTE | 2018-11-30 11:44 | CP.CCUPN ---
<Shubham Felipe - Last Filed: 11/30/18 11:40> CCU Subjective - Physician Review Events Since Last Encounter (Free Text): 11/30/18 11:46 PGY-1 Critical Care Progress Note for Dr. Rowley Patient seen and evaluated bedside. She is alert and oriented at baseline mental status and functioning. Admits to taking mother's Baclofen for migraine headaches that are uncontrolled and took too many. Patient otherwise medically stable for transfer to [facility]. CCU Objective - Vital Signs / Intake & Output Vital Signs (Last 4 hours): Vital Signs Temp Pulse Resp BP Pulse Ox 11/30/18 11:00 79 13 100 11/30/18 10:49 93 H 16 108/58 L 95 11/30/18 10:45 95 H 9 L 98 11/30/18 10:30 81 11 L 100 11/30/18 10:15 85 17 93 L 11/30/18 10:00 84 11 L 96 11/30/18 09:49 85 13 112/61 100 11/30/18 09:45 91 H 15 100 11/30/18 09:30 80 13 100 11/30/18 09:15 74 11 L 100 11/30/18 09:00 80 19 100 11/30/18 08:49 73 10 L 114/54 L 100 11/30/18 08:45 77 18 100 11/30/18 08:30 81 10 L 100 11/30/18 08:15 84 12 100 11/30/18 08:00 98.1 F 82 13 100 11/30/18 07:49 74 18 108/54 L 100 11/30/18 07:45 77 8 L 100 Intake and Output (Last 8hrs): Intake & Output 11/29/18 11/30/18 11/30/18 22:59 06:59 14:59 Intake Total 1200 1350 594 Output Total 850 780 200 Balance 350 570 394 Weight 149 lb 12.8 oz Intake: Intake, IV Amount 1200 1350 424 Left Antecubital 1200 1350 424 Oral 0 0 170 Output: Urine 850 750 200 Urine, Voided 850 750 200 Emesis 30 Other: # Voids Urine, Voided 0 0 1 # Bowel Movements 0 0 0 - Physical Exam Head: Positive for: Atraumatic, Normocephalic Pupils: Positive for: PERRL Extroacular Muscles: Positive for: EOMI Mouth: Positive for: Moist Mucous Membranes Neck: Positive for: Normal Range of Motion Respiratory/Chest: Positive for: Clear to Auscultation, Tachypneic (noted to be tachypneic during the afternoon which then resolved). Negative for: Accessory Muscle Use, Rales, Rhonchi Cardiovascular: Positive for: Regular Rate and Rhythm, Normal S1, S2 Abdomen: Negative for: Tenderness, Distention Neurological: Positive for: CN II-XII Intact, Other (Awake, responding to name and commands. Mostly nonverbal but did say name per nursing.) Skin: Positive for: Warm, Dry Psychiatric: Positive for: Alert, Oriented x 3, Normal Concentration - Medications Active Medications: Active Medications Generic Name Dose Route Start Last Admin Trade Name Freq PRN Reason Stop Dose Admin Heparin Sodium (Porcine) 5,000 units 11/28/18 23:30 11/30/18 05:06 Heparin SC 5,000 units Q8 RACHEL Administration Potassium Phosphate 15 mmole/ 255 mls @ 63 mls/hr 11/30/18 09:21 11/30/18 10:19 Sodium Chloride IV 11/30/18 13:19 63 mls/hr ONCE ONE Administration Ondansetron HCl 4 mg 11/29/18 02:00 11/29/18 03:16 Zofran Inj IVP 4 mg Q6H PRN Administration Nausea/Vomiting - Patient Studies Lab Studies: Microbiology Studies 11/29/18 01:48 MRSA Culture (Admit) - Final Nose MRSA NOT DETECTED Lab Studies 11/30/18 11/30/18 11/29/18 Range/Units 05:52 05:52 01:49 WBC 10.8 (4.8-10.8) K/uL RBC 4.04 (3.80-5.20) Mil/uL Hgb 12.0 (11.0-16.0) g/dL Hct 35.4 (34.0-47.0) % MCV 87.5 (81.0-99.0) fL MCH 29.6 (27.0-31.0) pg MCHC 33.8 (33.0-37.0) g/dL RDW 14.0 (11.5-14.5) % Plt Count 222 (130-400) K/uL MPV 9.6 (7.2-11.7) fL Neut % (Auto) 63.1 (50.0-75.0) % Lymph % (Auto) 30.3 (20.0-40.0) % [place] % (Auto) 6.0 (0.0-10.0) % Eos % (Auto) 0.3 (0.0-4.0) % Baso % (Auto) 0.3 (0.0-2.0) % Neut # (Auto) 6.8 (1.8-7.0) K/uL Lymph # (Auto) 3.3 (1.0-4.3) K/uL [place] # (Auto) 0.6 (0.0-0.8) K/uL Eos # (Auto) 0.0 (0.0-0.7) K/uL Baso # (Auto) 0.0 (0.0-0.2) K/uL Sodium 139 (132-148) mmol/L Potassium 3.1 L (3.6-5.2) mmol/L Chloride 111 H (98-107) mmol/L Carbon Dioxide 23 (22-30) mmol/L Anion Gap 9 L (10-20) BUN 2 L (7-17) mg/dL Creatinine 0.4 L (0.7-1.2) mg/dL Est GFR ( Amer) > 60 Est GFR (Non-Af Amer) > 60 Random Glucose 92 D (65-105) mg/dL Calcium 8.1 L (8.6-10.4) mg/dl Phosphorus 2.0 L (2.5-4.5) mg/dL Magnesium 1.9 (1.6-2.3) mg/dL Total Bilirubin 0.4 (0.2-1.3) mg/dL AST 23 (14-36) U/L ALT < 6 L D (9-52) U/L Alkaline Phosphatase 41 (38-126) U/L Total Protein 5.8 L (6.3-8.3) g/dL Albumin 3.3 L (3.5-5.0) g/dL Globulin 2.5 (2.2-3.9) gm/dL Albumin/Globulin Ratio 1.3 (1.0-2.1) Phenobarbital <5.0 L (15.0-40.0) mg/L Laboratory Results - last 24 hr 11/29/18 11/30/18 11/30/18 01:49 05:52 05:52 WBC 10.8 RBC 4.04 Hgb 12.0 Hct 35.4 MCV 87.5 MCH 29.6 MCHC 33.8 RDW 14.0 Plt Count 222 MPV 9.6 Neut % (Auto) 63.1 Lymph % (Auto) 30.3 [place] % (Auto) 6.0 Eos % (Auto) 0.3 Baso % (Auto) 0.3 Neut # (Auto) 6.8 Lymph # (Auto) 3.3 [place] # (Auto) 0.6 Eos # (Auto) 0.0 Baso # (Auto) 0.0 Sodium 139 Potassium 3.1 L Chloride 111 H Carbon Dioxide 23 Anion Gap 9 L BUN 2 L Creatinine 0.4 L Est GFR ( Amer) > 60 Est GFR (Non-Af Amer) > 60 Random Glucose 92 D Calcium 8.1 L Phosphorus 2.0 L Magnesium 1.9 Total Bilirubin 0.4 AST 23 ALT < 6 L D Alkaline Phosphatase 41 Total Protein 5.8 L Albumin 3.3 L Globulin 2.5 Albumin/Globulin Ratio 1.3 Phenobarbital <5.0 L Fingerstick Blood Sugar Results: 83 Critical Care Progress Note - Nutrition Nutrition: Nutrition Category Date Time Status Regular Diet [DIET] Diets 11/30/18 Lunch Active Assessment/Plan - Assessment and Plan (Free Text) Assessment: CV -Hemodynamically stable Neuro Altered Mental Status -Patient awake alert, oriented this morning -Admits to taking mother's Baclofen to try and help with Migraines as her Fioricet does not work and she is without insurance. Unsure how many she took, but says taking one Baclofen and then taking more because initial dose not working - bedside EEG - f/u official read -CT head - no acute intracranial abnormality -CXR - Negative for acute disease -Neurology consulted, Dr. Ortega --Recommending psych consult for anxiety -Pt for transfer to [facility] Pulm -Breathing spontaneously on room air -Patient did become tachypneic earlier, appears possibly related to anxiety -Mild respiratory alkalosis 2/2 hyperventilation -Pt for transfer to [facility] Endo -No active endocrine problems Nephro Hypokalemia -K repleted -Repeat CMP GI -No active issues -No active issues ID -Afebrile, no white count Heme -HgB stable -Monitor H and H PPx - DVT: Heparin 5000u SC q8, SCDs - IVF: D5NS@150 - Pt for transfer to [facility] Assessment and plan d/w Dr. Amrik Felipe, PGY-1 <Cesar Rowley S - Last Filed: 11/30/18 18:02> CCU Subjective - Physician Review Critical Care Time Spent (in minutes): 35 CCU Objective - Vital Signs / Intake & Output Vital Signs (Last 4 hours): Vital Signs Pulse Resp Pulse Ox 11/30/18 14:30 96 H 14 100 11/30/18 14:15 95 H 12 99 Intake and Output (Last 8hrs): Intake & Output 11/30/18 11/30/18 11/30/18 06:59 14:59 22:59 Intake Total 1350 838 Output Total 780 200 Balance 570 638 Weight 149 lb 12.8 oz Intake: Intake, IV Amount 1350 548 Left Antecubital 1350 548 Oral 0 290 Output: Urine 750 200 Urine, Voided 750 200 Emesis 30 Other: # Voids Urine, Voided 0 1 # Bowel Movements 0 0 - Medications Active Medications: Active Medications Generic Name Dose Route Start Last Admin Trade Name Freq PRN Reason Stop Dose Admin Heparin Sodium (Porcine) 5,000 units 11/28/18 23:30 11/30/18 15:11 Heparin SC Not Given Q8 RACHEL Ondansetron HCl 4 mg 11/29/18 02:00 11/29/18 03:16 Zofran Inj IVP 4 mg Q6H PRN Administration Nausea/Vomiting - Patient Studies Lab Studies: Microbiology Studies 11/29/18 01:48 MRSA Culture (Admit) - Final Nose MRSA NOT DETECTED Lab Studies 11/30/18 11/30/18 11/30/18 Range/Units 11:15 05:52 05:52 WBC 10.8 (4.8-10.8) K/uL RBC 4.04 (3.80-5.20) Mil/uL Hgb 12.0 (11.0-16.0) g/dL Hct 35.4 (34.0-47.0) % MCV 87.5 (81.0-99.0) fL MCH 29.6 (27.0-31.0) pg MCHC 33.8 (33.0-37.0) g/dL RDW 14.0 (11.5-14.5) % Plt Count 222 (130-400) K/uL MPV 9.6 (7.2-11.7) fL Neut % (Auto) 63.1 (50.0-75.0) % Lymph % (Auto) 30.3 (20.0-40.0) % [place] % (Auto) 6.0 (0.0-10.0) % Eos % (Auto) 0.3 (0.0-4.0) % Baso % (Auto) 0.3 (0.0-2.0) % Neut # (Auto) 6.8 (1.8-7.0) K/uL Lymph # (Auto) 3.3 (1.0-4.3) K/uL [place] # (Auto) 0.6 (0.0-0.8) K/uL Eos # (Auto) 0.0 (0.0-0.7) K/uL Baso # (Auto) 0.0 (0.0-0.2) K/uL Sodium 139 (132-148) mmol/L Potassium 3.1 L (3.6-5.2) mmol/L Chloride 111 H (98-107) mmol/L Carbon Dioxide 23 (22-30) mmol/L Anion Gap 9 L (10-20) BUN 2 L (7-17) mg/dL Creatinine 0.4 L (0.7-1.2) mg/dL Est GFR ( Amer) > 60 Est GFR (Non-Af Amer) > 60 POC Glucose (mg/dL) 116 H (65-110) mg/dL Random Glucose 92 D (65-105) mg/dL Calcium 8.1 L (8.6-10.4) mg/dl Phosphorus 2.0 L (2.5-4.5) mg/dL Magnesium 1.9 (1.6-2.3) mg/dL Total Bilirubin 0.4 (0.2-1.3) mg/dL AST 23 (14-36) U/L ALT < 6 L D (9-52) U/L Alkaline Phosphatase 41 (38-126) U/L Total Protein 5.8 L (6.3-8.3) g/dL Albumin 3.3 L (3.5-5.0) g/dL Globulin 2.5 (2.2-3.9) gm/dL Albumin/Globulin Ratio 1.3 (1.0-2.1) Phenobarbital (15.0-40.0) mg/L 11/29/18 Range/Units 01:49 WBC (4.8-10.8) K/uL RBC (3.80-5.20) Mil/uL Hgb (11.0-16.0) g/dL Hct (34.0-47.0) % MCV (81.0-99.0) fL MCH (27.0-31.0) pg MCHC (33.0-37.0) g/dL RDW (11.5-14.5) % Plt Count (130-400) K/uL MPV (7.2-11.7) fL Neut % (Auto) (50.0-75.0) % Lymph % (Auto) (20.0-40.0) % [place] % (Auto) (0.0-10.0) % Eos % (Auto) (0.0-4.0) % Baso % (Auto) (0.0-2.0) % Neut # (Auto) (1.8-7.0) K/uL Lymph # (Auto) (1.0-4.3) K/uL [place] # (Auto) (0.0-0.8) K/uL Eos # (Auto) (0.0-0.7) K/uL Baso # (Auto) (0.0-0.2) K/uL Sodium (132-148) mmol/L Potassium (3.6-5.2) mmol/L Chloride (98-107) mmol/L Carbon Dioxide (22-30) mmol/L Anion Gap (10-20) BUN (7-17) mg/dL Creatinine (0.7-1.2) mg/dL Est GFR ( Amer) Est GFR (Non-Af Amer) POC Glucose (mg/dL) (65-110) mg/dL Random Glucose (65-105) mg/dL Calcium (8.6-10.4) mg/dl Phosphorus (2.5-4.5) mg/dL Magnesium (1.6-2.3) mg/dL Total Bilirubin (0.2-1.3) mg/dL AST (14-36) U/L ALT (9-52) U/L Alkaline Phosphatase (38-126) U/L Total Protein (6.3-8.3) g/dL Albumin (3.5-5.0) g/dL Globulin (2.2-3.9) gm/dL Albumin/Globulin Ratio (1.0-2.1) Phenobarbital <5.0 L (15.0-40.0) mg/L Laboratory Results - last 24 hr 11/29/18 11/30/18 11/30/18 01:49 05:52 05:52 WBC 10.8 RBC 4.04 Hgb 12.0 Hct 35.4 MCV 87.5 MCH 29.6 MCHC 33.8 RDW 14.0 Plt Count 222 MPV 9.6 Neut % (Auto) 63.1 Lymph % (Auto) 30.3 [place] % (Auto) 6.0 Eos % (Auto) 0.3 Baso % (Auto) 0.3 Neut # (Auto) 6.8 Lymph # (Auto) 3.3 [place] # (Auto) 0.6 Eos # (Auto) 0.0 Baso # (Auto) 0.0 Sodium 139 Potassium 3.1 L Chloride 111 H Carbon Dioxide 23 Anion Gap 9 L BUN 2 L Creatinine 0.4 L Est GFR ( Amer) > 60 Est GFR (Non-Af Amer) > 60 POC Glucose (mg/dL) Random Glucose 92 D Calcium 8.1 L Phosphorus 2.0 L Magnesium 1.9 Total Bilirubin 0.4 AST 23 ALT < 6 L D Alkaline Phosphatase 41 Total Protein 5.8 L Albumin 3.3 L Globulin 2.5 Albumin/Globulin Ratio 1.3 Phenobarbital <5.0 L 11/30/18 11:15 WBC RBC Hgb Hct MCV MCH MCHC RDW Plt Count MPV Neut % (Auto) Lymph % (Auto) [place] % (Auto) Eos % (Auto) Baso % (Auto) Neut # (Auto) Lymph # (Auto) [place] # (Auto) Eos # (Auto) Baso # (Auto) Sodium Potassium Chloride Carbon Dioxide Anion Gap BUN Creatinine Est GFR ( Amer) Est GFR (Non-Af Amer) POC Glucose (mg/dL) 116 H Random Glucose Calcium Phosphorus Magnesium Total Bilirubin AST ALT Alkaline Phosphatase Total Protein Albumin Globulin Albumin/Globulin Ratio Phenobarbital Critical Care Progress Note - Nutrition Nutrition: Nutrition Category Date Time Status Regular Diet [DIET] Diets 11/30/18 Lunch Active Attending/Attestation - Attestation I have personally seen and examined this patient.: Yes I have fully participated in the care of the patient.: Yes I have reviewed all pertinent clinical information: Yes Notes (Text): 11/30/18 18:01 Patient seen and examined in the intensive care unit. Patient is alert oriented x3 Stable from ICU point of view
[2018-11-30 12:35] VITALS: TEMP 98.2
--- NOTE | 2018-11-30 13:53 | CP.PCM.DIS ---
Provider - Provider Date of Admission: 11/28/18 22:42 Attending physician: Enriqueta Erickson DO Consults: 11/29/18 12:28 Neurology Consult Routine Comment: Consulting Provider: David Ortega Consulting Physician: David Ortega Reason for Consult: ams, eval for seizure disorder 11/29/18 13:33 Pastoral Care Referral Routine Comment: Physician Instructions: Reason For Exam: spiritual support 11/29/18 15:27 Psychiatry Consult Routine Comment: Consulting Provider: Sheron Encinas Consulting Physician: Sheron Encinas Reason for Consult: AMS, possible underlying psych condition Time Spent in preparation of Discharge (in minutes): 31 Diagnosis - Discharge Diagnosis (1) Encephalopathy Status: Acute Comment: secondary to overdose of Baclofen (took 3-4 doses). per psych stable for discharge (2) Seizure disorder Status: Ruled-out (3) Migraines Status: Acute Comment: discussed prevention options including: no red wine. limit caffeine intake (drinks excessive amount of soda). sleep hygiene including limiting screen time on phone. creation of headache diary including frequency, triggers Hospital Course - Lab Results Lab Results: Micro Results 11/29/18 01:48 Nose MRSA Culture (Admit) - Final MRSA NOT DETECTED Most Recent Lab Values WBC 10.8 K/uL (4.8-10.8) 11/30/18 05:52 RBC 4.04 Mil/uL (3.80-5.20) 11/30/18 05:52 Hgb 12.0 g/dL (11.0-16.0) 11/30/18 05:52 Hct 35.4 % (34.0-47.0) 11/30/18 05:52 MCV 87.5 fL (81.0-99.0) 11/30/18 05:52 MCH 29.6 pg (27.0-31.0) 11/30/18 05:52 MCHC 33.8 g/dL (33.0-37.0) 11/30/18 05:52 RDW 14.0 % (11.5-14.5) 11/30/18 05:52 Plt Count 222 K/uL (130-400) 11/30/18 05:52 MPV 9.6 fL (7.2-11.7) 11/30/18 05:52 Neut % (Auto) 63.1 % (50.0-75.0) 11/30/18 05:52 Lymph % (Auto) 30.3 % (20.0-40.0) 11/30/18 05:52 [place] % (Auto) 6.0 % (0.0-10.0) 11/30/18 05:52 Eos % (Auto) 0.3 % (0.0-4.0) 11/30/18 05:52 Baso % (Auto) 0.3 % (0.0-2.0) 11/30/18 05:52 Neut # (Auto) 6.8 K/uL (1.8-7.0) 11/30/18 05:52 Lymph # (Auto) 3.3 K/uL (1.0-4.3) 11/30/18 05:52 [place] # (Auto) 0.6 K/uL (0.0-0.8) 11/30/18 05:52 Eos # (Auto) 0.0 K/uL (0.0-0.7) 11/30/18 05:52 Baso # (Auto) 0.0 K/uL (0.0-0.2) 11/30/18 05:52 Neutrophils % (Manual) 86 % (50-75) H 11/29/18 06:15 Lymphocytes % (Manual) 9 % (20-40) L 11/29/18 06:15 Monocytes % (Manual) 5 % (0-10) 11/29/18 06:15 Platelet Estimate Normal (NORMAL) 11/29/18 06:15 Puncture Site Rra 11/29/18 10:48 pCO2 28 mm/Hg (35-45) L 11/29/18 10:48 pO2 154 mm/Hg (80-100) H 11/29/18 10:48 HCO3 22.8 mmol/L (21-28) 11/29/18 10:48 ABG pH 7.46 (7.35-7.45) H 11/29/18 10:48 ABG Total CO2 20.8 mmol/L (22-28) L 11/29/18 10:48 ABG O2 Saturation 99.3 % (95-98) H 11/29/18 10:48 ABG Base Excess -2.7 mmol/L (-2.0-3.0) L 11/29/18 10:48 ABG Hemoglobin 13.0 g/dL (11.7-17.4) 11/29/18 10:48 ABG Carboxyhemoglobin 0.9 % (0.5-1.5) 11/29/18 10:48 POC ABG HHb (Measured) 0.7 % (0.0-5.0) 11/29/18 10:48 ABG Methemoglobin 0.9 % (0.0-3.0) 11/29/18 10:48 Eddi Test Po 11/29/18 10:48 ABG Potassium 3.9 mmol/L (3.6-5.2) 11/29/18 01:35 VBG pH 7.25 (7.32-7.43) L 11/28/18 22:40 VBG pCO2 52 mmHg (40-60) 11/28/18 22:40 VBG HCO3 20.6 mmol/L 11/28/18 22:40 VBG Total CO2 24.4 mmol/L (22-28) 11/28/18 22:40 VBG O2 Sat (Calc) 88.0 % (40-65) H 11/28/18 22:40 VBG Base Excess -4.9 mmol/L (0.0-2.0) L 11/28/18 22:40 VBG Potassium 4.0 mmol/L (3.6-5.2) 11/28/18 22:40 A-a O2 Difference 11.0 mm/Hg 11/29/18 10:48 Respiratory Index 0.1 11/29/18 10:48 Hgb O2 Saturation 97.4 % (95.0-98.0) 11/29/18 10:48 Sodium 140.0 mmol/l (132-148) 11/29/18 01:35 Chloride 113.0 mmol/L (98-107) H 11/29/18 01:35 Glucose 169 mg/dl (65-105) H 11/29/18 01:35 Lactate 0.7 mmol/L (0.7-2.1) 11/29/18 01:35 Liter Flow 2.0 11/29/18 10:48 FiO2 28.0 % 11/29/18 10:48 Sodium 139 mmol/L (132-148) 11/30/18 05:52 Potassium 3.1 mmol/L (3.6-5.2) L 11/30/18 05:52 Chloride 111 mmol/L (98-107) H 11/30/18 05:52 Carbon Dioxide 23 mmol/L (22-30) 11/30/18 05:52 Anion Gap 9 (10-20) L 11/30/18 05:52 BUN 2 mg/dL (7-17) L 11/30/18 05:52 Creatinine 0.4 mg/dL (0.7-1.2) L 11/30/18 05:52 Est GFR ( Amer) > 60 11/30/18 05:52 Est GFR (Non-Af Amer) > 60 11/30/18 05:52 POC Glucose (mg/dL) 116 mg/dL (65-110) H 11/30/18 11:15 Random Glucose 92 mg/dL (65-105) D 11/30/18 05:52 Serum Osmolality 301 mosm/kg (272-300) H 11/29/18 08:08 Calcium 8.1 mg/dl (8.6-10.4) L 11/30/18 05:52 Phosphorus 2.0 mg/dL (2.5-4.5) L 11/30/18 05:52 Magnesium 1.9 mg/dL (1.6-2.3) 11/30/18 05:52 Total Bilirubin 0.4 mg/dL (0.2-1.3) 11/30/18 05:52 AST 23 U/L (14-36) 11/30/18 05:52 ALT < 6 U/L (9-52) L D 11/30/18 05:52 Alkaline Phosphatase 41 U/L (38-126) 11/30/18 05:52 Ammonia 34 umol/L (9-33) H 11/29/18 06:14 Total Protein 5.8 g/dL (6.3-8.3) L 11/30/18 05:52 Albumin 3.3 g/dL (3.5-5.0) L 11/30/18 05:52 Globulin 2.5 gm/dL (2.2-3.9) 11/30/18 05:52 Albumin/Globulin Ratio 1.3 (1.0-2.1) 11/30/18 05:52 Arterial Blood Potassium 3.9 mmol/L (3.6-5.2) 11/29/18 01:35 Venous Blood Potassium 4.0 mmol/L (3.6-5.2) 11/28/18 22:40 Urine Color Colorless (YELLOW) 11/28/18 21:35 Urine Clarity Clear (Clear) 11/28/18 21:35 Urine pH 6.0 (5.0-8.0) 11/28/18 21:35 Ur Specific [place] 1.004 (1.003-1.030) 11/28/18 21:35 Urine Protein Negative mg/dL (NEGATIVE) 11/28/18 21:35 Urine Glucose (UA) Normal mg/dL (Normal) 11/28/18 21:35 Urine Ketones Negative mg/dL (NEGATIVE) 11/28/18 21:35 Urine Blood Negative (NEGATIVE) 11/28/18 21:35 Urine Nitrate Negative (NEGATIVE) 11/28/18 21:35 Urine Bilirubin Negative (NEGATIVE) 11/28/18 21:35 Urine Urobilinogen Normal mg/dL (0.2-1.0) 11/28/18 21:35 Ur Leukocyte Esterase Neg Janis/uL (Negative) 11/28/18 21:35 Urine WBC (Auto) < 1 /hpf (0-5) 11/28/18 21:35 Ur Squamous Epith Cells 1 /hpf (0-5) 11/28/18 21:35 Urine HCG, Qual Negative (NEGATIVE) 11/28/18 21:35 Salicylates < 1.0 mg/dL 1 11/28/18 21:46 Urine Opiates Screen Negative (NEGATIVE) 11/28/18 21:35 Urine Methadone Screen Negative (NEGATIVE) 11/28/18 21:35 Acetaminophen < 10.0 ug/mL (10.0-30.0) L 11/29/18 01:49 Ur Barbiturates Screen Positive (NEGATIVE) H 11/28/18 21:35 Valproic Acid < 10.0 ug/mL (50.0-100.0) L 11/29/18 08:08 Ur Phencyclidine Scrn Negative (NEGATIVE) 11/28/18 21:35 Ur Amphetamines Screen Negative (NEGATIVE) 11/28/18 21:35 Phenobarbital <5.0 mg/L (15.0-40.0) L 11/29/18 01:49 U Benzodiazepines Scrn Negative (NEGATIVE) 11/28/18 21:35 U Oth Cocaine Metabols Negative (NEGATIVE) 11/28/18 21:35 U Cannabinoids Screen Positive (NEGATIVE) H 11/28/18 21:35 Alcohol, Quantitative < 10 mg/dl (0-10) 11/28/18 21:30 - Hospital Course Hospital Course: cc: "AMS" Ms. Henley is a 23yo female with PMH of migraines who was BIBA for acute change in mental status. Patient was talking with family, stating she had back pain and wanting to rest. Last known normal was 8:15pm. By 8:30pm patient was unarousable by family and 911 called. Multiple doses of Narcan were given en route to hospital because of unresponsiveness and constricted pupils with no effect. Family denies recent travel or recent illness. Patient unable to provide history. No empty bottles or pills noted around patient by family or EMS. PMH: migraines Med: Fioricet 325/50/40 TID prn for headache All: NKDA PSxHx: denies FamHx: denies SocHx: denies tobacco, alcohol, drugs. Full Code Patient was admitted to the intensive care unit neurology and psychiatry consulted on the case patient was monitored in the unit patient mental status improved. UDS UDS noted for mildly elevated barbiturate level however negative Tylenol. When patient's mental status had improved she noted that she is been taking her mother's baclofen but 3-4 tabs for back pain at one time. Patient reports a prominent childhood history of migraines; but is presently that has been refractory to Fioricet and notes that naproxen has not helped her in the past as well. And reports that without insurance she is unable to see in terms of follow-up and treatment. She does also admit that she has not been taking care of herself while admits to prominent soda history, not eating a healthy diet as well as inadequate sleep hygiene. We did go over in terms of discharge planning in terms of prevention for further migraines including limiting soft cheeses she does not drink alcohol per her daniele and otherwise sleep hygiene limiting her caffeine which is mild associate with her intense soda and creation of something called a headache diary in terms of frequency type of headache along with loss to help in terms of providing a more adequate therapy for migraines in future for follow-up. Patient was seen by psychiatry stable from a standpoint. And I did discuss with patient privately she does have a good relationship with her mother as well as a good relationship with her boyfriend and in no pressure from her boyfriend in terms of anything social stressor and no plans for pressure in terms of engaging in any type of sexual relationship as well. Day of discharge patient is sitting comfortably in the chair eating lunch at bedside talking appropriately strength improved cranial nerves intact lung sounds are clear to auscultation belly is benign soft. We will provide information for the patient for the [facility] at [place] [phone]. Patient is aware that she should follow-up within 1 week of hospital discharge as well as the creation of a migraine headache diary to help in terms of treatment for her headache. I did also did speak with neurology available appointment will likely be December 20 given that her insurance will be active as of the recommended for low-dose Topamax 25 mg twice a day for initial migraine treatment. We will hold off treatment and allow patient to recover at this time. Patient stabilized in the ICU to the floors patient is medically stable for discharge at this time please refer to EMR for full detail record. - Date & Time of H&P Date of H&P: 11/29/18 Time of H&P: 13:15 Discharge Exam - Head Exam Head Exam: ATRAUMATIC, NORMAL INSPECTION, NORMOCEPHALIC - Eye Exam Eye Exam: EOMI - ENT Exam ENT Exam: Mucous Membranes Moist - Respiratory Exam Respiratory Exam: Clear to PA & Lateral, NORMAL BREATHING PATTERN. absent: Rales, Rhonchi - Cardiovascular Exam Cardiovascular Exam: REGULAR RHYTHM, +S1, +S2 - GI/Abdominal Exam GI & Abdominal Exam: Normal Bowel Sounds, Soft. absent: Distended, Guarding, Rebound, Rigid, Tenderness - Extremities Exam Extremities exam: pedal pulses present - Back Exam Back exam: absent: CVA tenderness (L), CVA tenderness (R) - Neurological Exam Neurological exam: Alert, CN II-XII Intact, Oriented x3 - Psychiatric Exam Psychiatric exam: Normal Affect, Normal Mood - Skin Skin Exam: Dry, Intact, Normal Color, Warm Discharge Plan - Follow Up Plan Condition: STABLE Disposition: HOME/ ROUTINE Referrals: [facility] [Outside]
[2018-11-30 15:01] VITALS: BP 113/90; PULSE 96; RESP 14; O2SAT 100
== END 2018-11-30 15:30 | disposition home or self-care (01) | DRG 812 ==
LOC: C.ER 21:22 → C.9E 22:42 → C.9I 22:53
PROVIDERS: ADMIT Hospitalist; ATTEND Hospitalist
DX: T42.8X1A Poisoning by antiparkinsonism drugs and other central muscle-tone depressants, accidental (unintentional), initial encounter (principal); G93.40 Encephalopathy, unspecified; E87.3 Alkalosis; E87.6 Hypokalemia; F39 Unspecified mood [affective] disorder; G43.909 Migraine, unspecified, not intractable, without status migrainosus; G40.909 Epilepsy, unspecified, not intractable, without status epilepticus; T42.3X1A Poisoning by barbiturates, accidental (unintentional), initial encounter; R53.83 Other fatigue; F41.9 Anxiety disorder, unspecified